=== PATIENT | female | born 1940 | race Caucasian/White ===

== ENCOUNTER 2018-08-08 18:58 | Inpatient (IN) | payer OTHER ==
[2018-08-08] MEDS ORDERED: ACETAMINOPHEN 1000 MG/100 ML VIAL (NON FORMULARY) IVPB ONE (20:08)
--- NOTE | 2018-08-08 20:16 | PDOC ---
History of Present Illness - General Chief Complaint: Injury Stated Complaint: FALL Time Seen by Provider: 08/08/18 19:53 History Source: Patient Exam Limitations: Language Barrier - History of Present Illness Initial Comments: 78 yo F w a hx of HTN, HLD, T2DM comes into the ER with Right sided hip pain after she tripped and fell on her Right hip. She states there were multiple water bottles on the floor of her house and she tripped on the last one. She denies hitting her head, denies any LOC, denies hitting anything other than her R hip. Now she is in significant pain the right hip and cannot walk on it. Usually she is able to ambulate without a walker. She denies any recent fevers, chills, or infections. Denies any chest pain, SOB , or difficulty breathing. Denies any dysuria, frequency, urgency. Denies any headache, LOC, blurry vision. Denies any diarrhea or constipation. PCP: Dr. Carlos Roberto Psh: None Social hx: Denies smoking, drinking or illicit drug usage Allergies: NKA, NKDA Past History - Past Medical History Allergies/Adverse Reactions: Allergies Allergy/AdvReac Type Severity Reaction Status Date / Time No Known Allergies Allergy Verified 08/08/18 19:11 Home Medications: Ambulatory Orders Metformin HCl [Metformin HCl ER] 500 mg PO DAILY 10/31/14 Quinapril HCl [Accupril -] 20 mg PO DAILY 10/31/14 Simvastatin [Zocor -] 40 mg PO HS 10/31/14 COPD: No CHF: No Diabetes: Yes HTN: Yes - Suicide/Smoking/Psychosocial Hx Smoking History: Never smoked Have you smoked in the past 12 months: No Information on smoking cessation initiated: No Hx Alcohol Use: No Drug/Substance Use Hx: No Substance Use Type: None Review of Systems - Review of Systems Comments:: CONSTITUTIONAL: Absent: fever, no chills, no fatigue EYES: Absent: visual changes ENT: Absent: ear pain, no sore throat CARDIOVASCULAR: Absent: chest pain, no palpitations RESPIRATORY: Absent: cough, no SOB GI: Absent: abdominal pain, no nausea, no vomiting, no constipation, no diarrhea GENITOURINARY: Absent: dysuria, no frequency, no hematuria MUSKULOSKELETAL: Present: Arthralgia Absent: back pain, no myalgia SKIN: Absent: rash NEURO: Absent: headache *Physical Exam - Vital Signs Last Vital Signs Temp Pulse Resp BP Pulse Ox 98.7 F 92 H 16 175/83 H 100 08/08/18 19:00 08/08/18 19:00 08/08/18 19:00 08/08/18 19:00 08/08/18 19:00 - Physical Exam Comments: GENERAL: Well-appearing, well-nourished. No apparent distress. HEENT: Normocephalic, atraumatic. PERRL, EOM intact. CARDIOVASCULAR: Normal S1, S2. Regular rate and rhythm. PULMONARY: Clear to auscultation bilaterally. ABDOMEN: Soft, non-distended, non-tender. MUSCULOSKELETAL RIGHT LEG: The right leg appears shorter than the left. 2+ equal pulses. Normal sensation equal to left. Equal strength in R ankle compared to left. Normal range of motion at all other joints. No bony deformities or tenderness. No CVA tenderness. EXTREMITIES: No cyanosis. No clubbing. No edema. No calf tenderness. SKIN: Warm, dry. No rash NEUROLOGICAL: No focal neurological deficits. Moderate Sedation - Procedure Monitoring Vital Signs: Procedure Monitoring Vital Signs Temperature 98.7 F 08/08/18 19:00 Pulse Rate 92 H 08/08/18 19:00 Respiratory Rate 16 08/08/18 19:00 Blood Pressure 175/83 H 08/08/18 19:00 O2 Sat by Pulse Oximetry (%) 100 08/08/18 19:00 ED Treatment Course - LABORATORY CBC & Chemistry Diagram: 08/08/18 20:50 08/08/18 20:50 - RADIOLOGY Radiology Studies Ordered: Category Date Time Status HIP & PELVIS-RIGHT [RAD] Stat Radiology 08/08/18 20:06 Ordered Medical Decision Making - Medical Decision Making 78 yo F w a hx of HTN, HLD, T2DM comes into the ER with Right sided hip pain after she tripped and fell on her Right hip. DD includes but not limited to: Hip fx, hip dislocation, pelvis fracture, uti, acs, electrolyte abnormality, arrhythmia Plan: cbc, cmp, trop, Pt/inr, ptt, type and screen, ua/uc, EKG, pelvis/hip xr, analgesia, re-assess. Xray shows patient has a R sided hip fracture. Will admit patient for further care. Pre-op labs drawn Morphine given for pain control. *DC/Admit/Observation/Transfer Diagnosis at time of Disposition: Hip fracture - Discharge Dispostion Condition at time of disposition: Guarded Decision to Admit order: Yes - Referrals - Patient Instructions - Post Discharge Activity
--- NOTE | 2018-08-08 20:41 | PDOC ---
Attending Attestation - HPI HPI: The patient is an 78 year old female, with a significant PMH of HTN, HLD, and DM , who presents to the emergency department today complaining of right hip pain s /p unwitnessed fall earlier today. Patient notes she tripped on a water bottle and fell onto her right hip. Patient reports that the pain is localized to the affected area, but complains of inability to get up from prone/seated position or walk secondary to pain. Patient denies head contusion, LOC, or change in vision. The patient denies chest pain, shortness of breath, headache and dizziness. Denies fever, chills, nausea, vomit, diarrhea and constipation. Denies dysuria, frequency, urgency and hematuria. Allergies: NKA PCP: Dr. Carlos Roberto 08/08/18 20:55 <Anne-Marie Green - Last Filed: 08/08/18 20:55> - Resident Resident Name: Panfilo Thacker - ED Attending Attestation I have performed the following: I have examined & evaluated the patient, The case was reviewed & discussed with the resident, I agree w/resident's findings & plan, Exceptions are as noted - Physicial Exam PE: 08/08/18 21:45 NAD, AOx3 NCAT, Neck supple Diffuse tenderness of R hip, no swelling, no erythema Decreased ROM at hip 2/2 px Distal pulses intact, SILT RLE held by pt externally rotated, questionable shortening - Medical Decision Making 08/08/18 21:46 Mechanical fall, landed on R hip, no head trauma Concern for Hip fx analgesia, f/u imaging 08/08/18 23:02 Morphine 4mg with good effect Plain film with R hip fx admit <Karson Ordonez - Last Filed: 08/08/18 23:02>
[2018-08-08] MEDS ORDERED: ACETAMINOPHEN INJECTION 100 ML IVPB ONE (20:44)
[2018-08-08 20:59] LABS: BASO % 0.4 % (0-2.0); EOS % 0.8 % (0-4.5); HEMATOCRIT 41.6 % (32.4-45.2); HEMOGLOBIN 14.7 GM/dL (10.7-15.3); LYMPH % 12.4 % (8-40); MCH 30.6 pg (25.7-33.7); MCHC 35.2 g/dl (32.0-36.0); MEAN PLT VOLUME 9.9 fl (7.5-11.1); MONO % 6.5 % (3.8-10.2); NEUT % 79.9 % (42.8-82.8); PLATELET COUNT 202 K/MM3 (134-434); RBC 4.79 M/mm3 (3.60-5.2); RDW 13.7 % (11.6-15.6); WHITE BLOOD COUNT 10.1 K/mm3 (4.0-10.0)
[2018-08-08 21:11] LABS: URINE APPEARANCE CLEAR; URINE BILIRUBIN NEGATIVE (<2.0 mg/dL); URINE COLOR LTYELLOW; URINE GLUCOSE (UA) NEGATIVE (NEGATIVE); URINE KETONE NEGATIVE (NEGATIVE); URINE LEUK ESTERASE 2+ (NEGATIVE); URINE NITRITE NEGATIVE (NEGATIVE); URINE PROTEIN 1+ (NEGATIVE); URINE UROBILINOGEN NEGATIVE mg/dL (0.2-1.0)
[2018-08-08 21:24] LABS: EPI CELLS RARE /HPF (FEW); URINE MUCUS RARE
[2018-08-08 21:38] LABS: ALK PHOS 81 U/L (45-117); ANION GAP 10 MMOL/L (8-16); BILIRUBIN,TOTAL 0.3 mg/dL (0.2-1); BLOOD UREA NITROGEN 14 mg/dL (7-18); CALCIUM 8.8 mg/dL (8.5-10.1); CHLORIDE 106 mmol/L (98-107); CO2 24 mmol/L (21-32); CREATININE 0.6 mg/dL (0.55-1.3); GLUCOSE,RANDOM 181 mg/dL (74-106); POTASSIUM 4.1 mmol/L (3.5-5.1); SGOT/AST 15 U/L (15-37); SGPT/ALT 23 U/L (13-61); SODIUM 140 mmol/L (136-145); TOT PROT 7.2 g/dl (6.4-8.2)
[2018-08-08 21:44] LABS: INR 1.02 (0.83-1.09)
[2018-08-08 21:47] LABS: ACTIVATED PTT 27.8 SECONDS (25.2-36.5)
[2018-08-08] MEDS ORDERED: morphine CARPU-JECT 4 MG/1 ML DISP.SYRIN IVPUSH ONE (22:07)
[2018-08-08] MEDS ORDERED: MORPHINE SULFATE 2 MG/ML VIAL ONE (22:30)
--- NOTE | 2018-08-08 22:50 | PN ---
Teaching Attending Note Name of Resident: Canelo Ryan ATTENDING PHYSICIAN STATEMENT I saw and evaluated the patient. I reviewed the resident's note and discussed the case with the resident. I agree with the resident's findings and plan as documented. SUBJECTIVE: Patient is an 78 year old woman with a history of HTN, HLD and NIDDM who presents with Right sided hip pain after she tripped and fell on her Right hip. She states there were multiple water bottles on the floor of her house and she tripped on the last one. She denies hitting her head, denies any LOC, denies hitting anything other than her R hip. Now she is in significant pain the right hip and cannot walk on it. Usually she is able to ambulate without a walker. She denies any recent fevers, chills, chest pain, SOB, dysuria, headache, blurry vision or diarrhea. OBJECTIVE: Alert Vital Signs Period Temp Pulse Resp BP Sys/Mccoy Pulse Ox Last 24 Hr 98.7 F 92 16 175/83 100 HEENT: No Jaundice, eye redness or discharge, PERRLA, EOMI. Normocephalic, atraumatic. External ears are normal and hearing is grossly intact. No nasal discharge. Neck: Supple, nontender. No palpable adenopathy or thyromegaly. No JVD Chest: Good effort. Clear to auscultation and percussion. Heart: Regular. No S3, rub or murmur Abdomen: Not distended, soft, nontender and no HSM. No rebound or guarding. Normoactive bowel sounds. Ext: Peripheral pulses intact. No leg edema. Tender right hip with reduced range of motion. [place] right leg. Skin: Warm and dry. No petechiae, rash or ecchymosis. Neuro: Alert. Oriented x3. CN 2-12 grossly intact. Sensation grossly intact in all four extremities and DTR are symmetric. Home Medications Medication Instructions Recorded Metformin HCl [Metformin HCl ER] 500 mg PO DAILY 10/31/14 Quinapril HCl [Accupril -] 20 mg PO DAILY 10/31/14 Simvastatin [Zocor -] 40 mg PO HS 10/31/14 Abnormal Lab Results 08/08/18 08/08/18 08/08/18 20:39 20:50 20:50 WBC 10.1 H Random Glucose 181 H Urine Protein 1+ H Ur Leukocyte Esterase 2+ H ASSESSMENT AND PLAN: 1. Right Hip Fracture - Reportedly a mechanical fall, but the role of associated UTI is unclear since she does not have any urinary symptoms. Will treat UTI with Rocephin, keep her NPO, consult Ortho, control pain with IV morphine, and treat uncontrolled hypertension with amlodipine and lisinopril. 2. DM - For now, we will hold the home diabetes drugs and implement sliding scale insulin regimen. Provide comprehensive diabetes care with patient teaching and counseling about the importance of euglycemia, eye care and foot care. 3. DVT prophylaxis - Lovenox 40 mg SQ q 24 hours. 4. Advance directives - Full code
[2018-08-08] MEDS ORDERED: MORPHINE SULFATE 2 MG/ML VIAL IVPUSH PRN (23:00)
[2018-08-08] MEDS ORDERED: amLODIPine BESYLATE 5 MG TABLET (FP) PO ONE (23:04)
[2018-08-08] MEDS ORDERED: LISINOPRIL 20 MG TABLET (FP) PO SCH (23:15)
[2018-08-08] MEDS ORDERED: LACTATED RINGERS SOLUTION 1,000 ML IV SCH (23:15)
--- NOTE | 2018-08-08 23:15 | HP ---
CHIEF COMPLAINT: hip pain PCP: Carlos Roberto MD HISTORY OF PRESENT ILLNESS: Patient is an 78 y/o F w/ PMHx T2DM, HTN, HLD, was in [facility] until a mechanical fall today involving a water bottle. Fell onto right side and developed right hip pain. Denies head trauma, denies LOC, denies CP, denies abd pain, denies SOB , denies weakness or change in sensation. Denies dysuria, however, UA is positive and UCx pending. Hip XR demonstrates right femoral neck fracture. Received Ofirmev and morphine in ED, made more comfortable. Hypertensive on admission to 175/83, repeat BP after administration of morphine was unchanged. ER course was notable for: (1) R Hip Fx per XR (2) 2+ LE, 23 WBC on UA (3) BP 175/83 Recent Travel: PAST MEDICAL HISTORY: As per [facility] PAST SURGICAL HISTORY: None Social History: Smoking: none Alcohol: none Drugs: none Family History: Allergies No Known Allergies Allergy (Verified 08/08/18 19:11) HOME MEDICATIONS: Home Medications Medication Instructions Recorded Metformin HCl [Metformin HCl ER] 500 mg PO DAILY 10/31/14 Quinapril HCl [Accupril -] 20 mg PO DAILY 10/31/14 Simvastatin [Zocor -] 40 mg PO HS 10/31/14 REVIEW OF SYSTEMS As per [facility] PHYSICAL EXAMINATION Vital Signs - 24 hr 08/08/18 19:00 Temperature 98.7 F Pulse Rate 92 H Respiratory 16 Rate Blood Pressure 175/83 H O2 Sat by Pulse 100 Oximetry (%) GENERAL: A&Ox3, NAD HEAD: NC/AT EYES: PERRLA, EOMI EARS, NOSE, THROAT: Ears normal, nares patent, oropharynx clear without exudates. Moist mucous membranes. NECK: Normal range of motion, supple without lymphadenopathy, JVD, or masses. LUNGS: Breath sounds equal, clear to auscultation bilaterally. No wheezes, and no crackles. No accessory muscle use. HEART: Regular rate and rhythm, normal S1 and S2 without murmur, rub or gallop. ABDOMEN: Soft, nontender, not distended, normoactive bowel sounds, no guarding, no rebound, no masses. No hepatomegaly or splenomegaly. MUSCULOSKELETAL: Right LE shortened and held in abduction, TTP along R lateral femur UPPER EXTREMITIES: 2+ pulses, warm, well-perfused. No cyanosis. No clubbing. No peripheral edema. LOWER EXTREMITIES: 2+ pulses, warm, well-perfused. No calf tenderness. No peripheral edema. NEUROLOGICAL: Cranial nerves II-XII intact. Normal speech. Proximal LE strength not assessed, distal LE strength intact. Sensorium intact. Gait not assessed. PSYCHIATRIC: Cooperative. Good eye contact. Appropriate mood and affect. SKIN: Warm, dry, normal turgor, no rashes or lesions noted, normal capillary refill. Laboratory Results - last 24 hr 08/08/18 08/08/18 08/08/18 20:39 20:50 20:50 WBC 10.1 H RBC 4.79 Hgb 14.7 Hct 41.6 MCV 87.0 MCH 30.6 MCHC 35.2 RDW 13.7 Plt Count 202 D MPV 9.9 Absolute Neuts (auto) 8.0 Neutrophils % 79.9 D Lymphocytes % 12.4 D Monocytes % 6.5 Eosinophils % 0.8 Basophils % 0.4 Nucleated RBC % 0 PT with INR INR PTT (Actin FS) Sodium 140 Potassium 4.1 Chloride 106 Carbon Dioxide 24 Anion Gap 10 BUN 14 Creatinine 0.6 Creat Clearance w eGFR > 60 Random Glucose 181 H Calcium 8.8 Total Bilirubin 0.3 AST 15 ALT 23 Alkaline Phosphatase 81 Troponin I 0.03 Total Protein 7.2 Albumin 4.0 Urine Color Ltyellow Urine Appearance Clear Urine pH 7.0 Ur Specific [place] 1.012 Urine Protein 1+ H Urine Glucose (UA) Negative Urine Ketones Negative Urine Blood Negative Urine Nitrite Negative Urine Bilirubin Negative Urine Urobilinogen Negative Ur Leukocyte Esterase 2+ H Urine WBC (Auto) 23 Urine RBC (Auto) 1 Ur Epithelial Cells Rare Urine Mucus Rare 08/08/18 21:20 WBC RBC Hgb Hct MCV MCH MCHC RDW Plt Count MPV Absolute Neuts (auto) Neutrophils % Lymphocytes % Monocytes % Eosinophils % Basophils % Nucleated RBC % PT with INR 12.00 INR 1.02 PTT (Actin FS) 27.8 Sodium Potassium Chloride Carbon Dioxide Anion Gap BUN Creatinine Creat Clearance w eGFR Random Glucose Calcium Total Bilirubin AST ALT Alkaline Phosphatase Troponin I Total Protein Albumin Urine Color Urine Appearance Urine pH Ur Specific [place] Urine Protein Urine Glucose (UA) Urine Ketones Urine Blood Urine Nitrite Urine Bilirubin Urine Urobilinogen Ur Leukocyte Esterase Urine WBC (Auto) Urine RBC (Auto) Ur Epithelial Cells Urine Mucus ASSESSMENT/PLAN: 78 y/o F w/ PMHx T2DM, HTN, HLD p/w R hip Fx 2/2 mechanical fall, possible contribution of UTI to fall. #hip Fx -NPO -morphine PRN -LR @ 42 -ortho consulted #UTI -ceftriaxone empirically -UCx pending #T2DM -hold metformin -BGM ACHS -SSI #HLD -restart statin #HTN -one dose amlodipine 5 -lisinopril 20 BID #FEN -LR @ 42 -monitor lytes -NPO except meds #PPx -DVT: SCDs, no pharmacologic AC pending surgical eval -GI: not indicated #code -full #dispo -admit to med/surg Visit type - Emergency Visit Emergency Visit: Yes Care time: The patient presented to the Emergency Department on the above date and was hospitalized for further evaluation of their emergent condition. - New Patient This patient is new to me today: Yes Date on this admission: 08/08/18 - Critical Care Critical Care patient: No
[2018-08-08] MEDS ORDERED: CEFTRIAXONE 1 GM/50 ML BAG ONE (23:22)
[2018-08-08] MEDS ORDERED: LISINOPRIL 20 MG TABLET (FP) ONE (23:22)
[2018-08-08] MEDS ORDERED: amLODIPine BESYLATE 5 MG TABLET (FP) ONE (23:22)
[2018-08-08] MEDS: CEFTRIAXONE 1 GM in DEXTROSE 5%-WATER - 50 ML IVPB SCH (23:46)
[2018-08-09 03:37] VITALS: BMI 30.2
[2018-08-09] MEDS: INSULIN SLIDING SCALE (NOVOLOG) 1 VIAL SQ SCH ×4 (06:41→21:41)
[2018-08-09 07:34] LABS: ANION GAP 10 MMOL/L (8-16); BLOOD UREA NITROGEN 13 mg/dL (7-18); CALCIUM 8.2 mg/dL (8.5-10.1); CHLORIDE 104 mmol/L (98-107); CO2 25 mmol/L (21-32); CREATININE 0.5 mg/dL (0.55-1.3); GLUCOSE,RANDOM 185 mg/dL (74-106); PHOSPHOROUS 3.3 mg/dL (2.5-4.9); SODIUM 140 mmol/L (136-145)
[2018-08-09 07:47] LABS: BASO % 0.4 % (0-2.0); EOS % 0.2 % (0-4.5); HEMATOCRIT 40.3 % (32.4-45.2); HEMOGLOBIN 13.1 GM/dL (10.7-15.3); LYMPH % 11.1 % (8-40); MCH 28.6 pg (25.7-33.7); MCHC 32.6 g/dl (32.0-36.0); MEAN CELL VOLUME 87.7 fl (80-96); MEAN PLT VOLUME 10.1 fl (7.5-11.1); MONO % 6.2 % (3.8-10.2); NEUT % 82.1 % (42.8-82.8); PLATELET COUNT 180 K/MM3 (134-434); RBC 4.59 M/mm3 (3.60-5.2); RDW 13.7 % (11.6-15.6); WHITE BLOOD COUNT 8.8 K/mm3 (4.0-10.0)
--- NOTE | 2018-08-09 08:44 | PN ---
Teaching Attending Note Name of Resident: Mike Ochoa ATTENDING PHYSICIAN STATEMENT I saw and evaluated the patient. I reviewed the resident's note and discussed the case with the resident. I agree with the resident's findings and plan as documented. SUBJECTIVE: Patient is c/o having right hip pain s/p fall, going for surgery today. No fever or chills, no shorteness of breath. OBJECTIVE: Vital Signs Temperature 97.7 F 08/09/18 05:54 Pulse Rate 68 08/09/18 05:54 Respiratory Rate 18 08/09/18 05:54 Blood Pressure 156/70 08/09/18 05:54 O2 Sat by Pulse Oximetry (%) 99 08/09/18 02:55 GENERAL: A&Ox3, NAD HEAD: NC/AT, EYES: PERRLA, EOMI EARS, NOSE, THROAT: Ears normal, oropharynx clear without exudates. Moist mucous membranes. NECK: Normal range of motion, supple without lymphadenopathy, JVD, or masses. LUNGS: Breath sounds equal, clear to auscultation bilaterally. No wheezes, and no crackles. No accessory muscle use. HEART: Regular rate and rhythm, normal S1 and S2 without murmur, rub or gallop. ABDOMEN: Soft, nontender, not distended, normoactive bowel sounds, no guarding, no rebound, no masses. No hepatomegaly or splenomegaly. EXTREMITIES: 2+ pulses, warm, well-perfused. No cyanosis. No clubbing. No peripheral edema. right hip fx NEUROLOGICAL: Cranial nerves II-XII intact. Normal speech. Gait not assessed. PSYCHIATRIC: Cooperative. Good eye contact. Appropriate mood and affect. SKIN: Warm, dry, normal turgor, no rashes or lesions noted, normal capillary refill. CBCD WBC 8.8 K/mm3 (4.0-10.0) 08/09/18 06:00 RBC 4.59 M/mm3 (3.60-5.2) 08/09/18 06:00 Hgb 13.1 GM/dL (10.7-15.3) 08/09/18 06:00 Hct 40.3 % (32.4-45.2) 08/09/18 06:00 MCV 87.7 fl (80-96) 08/09/18 06:00 MCHC 32.6 g/dl (32.0-36.0) 08/09/18 06:00 RDW 13.7 % (11.6-15.6) 08/09/18 06:00 Plt Count 180 K/MM3 (134-434) 08/09/18 06:00 MPV 10.1 fl (7.5-11.1) 08/09/18 06:00 CMP Sodium 140 mmol/L (136-145) 08/09/18 06:00 Potassium 4.0 mmol/L (3.5-5.1) 08/09/18 06:00 Chloride 104 mmol/L (98-107) 08/09/18 06:00 Carbon Dioxide 25 mmol/L (21-32) 08/09/18 06:00 Anion Gap 10 MMOL/L (8-16) 08/09/18 06:00 BUN 13 mg/dL (7-18) 08/09/18 06:00 Creatinine 0.5 mg/dL (0.55-1.3) L 08/09/18 06:00 Creat Clearance w eGFR > 60 (>60) 08/09/18 06:00 Random Glucose 185 mg/dL (74-106) H 08/09/18 06:00 Calcium 8.2 mg/dL (8.5-10.1) L 08/09/18 06:00 Total Bilirubin 0.3 mg/dL (0.2-1) 08/08/18 20:50 AST 15 U/L (15-37) 08/08/18 20:50 ALT 23 U/L (13-61) 08/08/18 20:50 Alkaline Phosphatase 81 U/L (45-117) 08/08/18 20:50 Total Protein 7.2 g/dl (6.4-8.2) 08/08/18 20:50 Albumin 4.0 g/dl (3.4-5.0) 08/08/18 20:50 CARDIAC ENZYMES Troponin I 0.03 ng/ml (0.00-0.05) 08/08/18 20:50 Current Medications Generic Name Dose Route Start Last Admin Trade Name Freq PRN Reason Stop Dose Admin Atorvastatin Calcium 20 mg 08/09/18 22:00 Lipitor - PO HS TERRENCE Lactated Ringer's 1,000 mls @ 42 mls/hr 08/08/18 23:15 08/08/18 23:46 Lactated Ringers Solution IV 42 mls/hr ASDIR TERRENCE Administration Ceftriaxone Sodium 1 gm/ 50 mls @ 100 mls/hr 08/08/18 23:15 08/08/18 23:46 Dextrose IVPB 100 mls/hr DAILY TERRENCE Administration Protocol Insulin Aspart 1 vial 08/09/18 07:00 08/09/18 06:41 Novolog Vial Sliding Scale - SQ 2 units ACHS TERRENCE Administration Protocol Lisinopril 20 mg 08/09/18 10:00 Prinivil PO DAILY [facility] Morphine Sulfate 2 mg 08/08/18 23:00 Morphine Sulfate IVPUSH Q4H PRN PAIN LEVEL 6-10 Home Medications Medication Instructions Recorded Metformin HCl [Metformin HCl ER] 500 mg PO DAILY 10/31/14 Quinapril HCl [Accupril -] 20 mg PO DAILY 10/31/14 Simvastatin [Zocor -] 40 mg PO HS 10/31/14 Amlodipine Besylate [Norvasc -] 5 mg PO DAILY 08/09/18 Lisinopril 20 mg PO 08/09/18 Urine Test Results Urine Color Ltyellow 08/08/18 20:39 Urine Appearance Clear 08/08/18 20:39 Urine pH 7.0 (5.0-8.0) 08/08/18 20:39 Ur Specific [place] 1.012 (1.010-1.035) 08/08/18 20:39 Urine Protein 1+ (NEGATIVE) H 08/08/18 20:39 Urine Glucose (UA) Negative (NEGATIVE) 08/08/18 20:39 Urine Ketones Negative (NEGATIVE) 08/08/18 20:39 Urine Blood Negative (NEGATIVE) 08/08/18 20:39 Urine Nitrite Negative (NEGATIVE) 08/08/18 20:39 Urine Bilirubin Negative (<2.0 mg/dL) 08/08/18 20:39 Ur Leukocyte Esterase 2+ (NEGATIVE) H 08/08/18 20:39 Ur Epithelial Cells Rare /HPF (FEW) 08/08/18 20:39 Urine Mucus Rare 08/08/18 20:39 ASSESSMENT AND PLAN: PAtient is an 78 y/o F w/ PMHx T2DM, HTN, HLD s/p fall with R hip Fx due to mechanical fall. #Acute Right Hip Fx: NPO, morphine PRN, going for sx this afternoon #UTI: x 1 dose of ceftriaxone empirically given in ED. UCx is pending. #T2DM: hold metformin, BGM ACHS, SSI #HLD: continue with Lipitor , hold zocor due to DDI with Amlidipine and zocor. #HTN: one dose amlodipine 5, lisinopril 20 BID DVT px: Lovenox post surgery
[2018-08-09] MEDS ORDERED: DEXTROSE 5%-WATER - 50 ML IVPB ONE (09:14)
[2018-08-09] MEDS ORDERED: cefTRIAXone SODIUM 1 GM VIAL ONE (09:14)
[2018-08-09] MEDS: CEFTRIAXONE 1 GM in DEXTROSE 5%-WATER - 50 ML IVPB SCH (09:56)
[2018-08-09] MEDS ORDERED: LISINOPRIL 20 MG TABLET (FP) PO SCH (10:00)
--- NOTE | 2018-08-09 10:27 | EKG ---
Test Reason : Blood Pressure : / mmHG Vent. Rate : 072 BPM Atrial Rate : 072 BPM P-R Int : 148 ms QRS Dur : 136 ms QT Int : 434 ms P-R-T Axes : 028 -34 069 degrees QTc Int : 475 ms NORMAL SINUS RHYTHM LEFT AXIS DEVIATION RIGHT BUNDLE BRANCH BLOCK LEFT VENTRICULAR HYPERTROPHY WITH REPOLARIZATION ABNORMALITY ABNORMAL ECG WHEN COMPARED WITH ECG OF 08-AUG-2018 20:57, MINIMAL CRITERIA FOR SEPTAL INFARCT ARE NO LONGER PRESENT Confirmed by RAMON HENLEY, ANT ([id number]) on 08/09/2018 10:26:33 AM Referred By: ENRRIQUE PUENTES Confirmed By:ANT NAVARRO MD
--- NOTE | 2018-08-09 10:28 | EKG ---
Test Reason : Blood Pressure : / mmHG Vent. Rate : 081 BPM Atrial Rate : 081 BPM P-R Int : 148 ms QRS Dur : 134 ms QT Int : 420 ms P-R-T Axes : 045 -36 076 degrees QTc Int : 487 ms NORMAL SINUS RHYTHM POSSIBLE LEFT ATRIAL ENLARGEMENT LEFT AXIS DEVIATION RIGHT BUNDLE BRANCH BLOCK LEFT VENTRICULAR HYPERTROPHY WITH REPOLARIZATION ABNORMALITY CANNOT RULE OUT SEPTAL INFARCT (CITED ON OR BEFORE 31-OCT-2014) ABNORMAL ECG WHEN COMPARED WITH ECG OF 31-OCT-2014 22:21, QUESTIONABLE CHANGE IN INITIAL FORCES OF SEPTAL LEADS T WAVE INVERSION LESS EVIDENT IN LATERAL LEADS Confirmed by ANT NAVARRO MD ([id number]) on 08/09/2018 10:28:22 AM Referred By: Confirmed By:ANT NAVARRO MD
[2018-08-09] MEDS ORDERED: ONDANSETRON 4 MG/2 ML VIAL IVPUSH PRN ×2 (12:29→15:18)
[2018-08-09] MEDS ORDERED: BUPIVACAINE HCL/PF 0.5% (5MG/ML) 10 ML VIAL ONE (12:45)
[2018-08-09] MEDS ORDERED: MIDAZOLAM HCL 2 MG/2 ML SINGLE DOSE VIAL ONE ×2 (12:47)
--- NOTE | 2018-08-09 13:15 | PN ---
Physical Exam: SUBJECTIVE: Patient seen and examined. Pt. denies any issues or complaints except for right hip pain. Pt. denies dysuria, polyuria or hematuria. Pt. denies fevers or chills. Pt. denies any prodromal symptoms before fall, hitting head or LOC. Pt. NPO for gamma nail procedure today. OBJECTIVE: Vital Signs Period Temp Pulse Resp BP Sys/Mccoy Pulse Ox Last 24 Hr 97.7 F-98.7 F 67-92 16-19 148-175/70-85 97-100 GENERAL: The patient is awake, alert, and fully oriented, in mild distress. HEAD: Normal with no signs of trauma. EYES: PERRL, extraocular movements intact, sclera anicteric, conjunctiva clear. No ptosis. ENT: Ears normal, nares patent, oropharynx clear without exudates, moist mucous membranes. NECK: Trachea midline, full range of motion, supple. LUNGS: Breath sounds equal, clear to auscultation bilaterally, no wheezes, mild fluid dependant crackles, no accessory muscle use. HEART: Regular rate and rhythm, S1, S2 without murmur, prominent clavicular heads ABDOMEN: Soft, nontender, nondistended, normoactive bowel sounds, dull to percussion, no guarding, no rebound EXTREMITIES: 2+ dorsal pedal pulses, warm, no calf tenderness, well-perfused, no edema, RIGGINS spontaneously; right hip non-tender to palpation, externally rotated, no erythema or ecchymosis at site. NEUROLOGICAL: Normal speech, gait not observed. PSYCH: Normal mood, normal affect. SKIN: Warm, dry, normal turgor, no rashes or lesions noted Laboratory Results - last 24 hr 08/08/18 08/08/18 08/08/18 08:59 20:39 20:50 WBC 10.1 H RBC 4.79 Hgb 14.7 Hct 41.6 MCV 87.0 MCH 30.6 MCHC 35.2 RDW 13.7 Plt Count 202 D MPV 9.9 Absolute Neuts (auto) 8.0 Neutrophils % 79.9 D Lymphocytes % 12.4 D Monocytes % 6.5 Eosinophils % 0.8 Basophils % 0.4 Nucleated RBC % 0 PT with INR INR PTT (Actin FS) Sodium Potassium Chloride Carbon Dioxide Anion Gap BUN Creatinine Creat Clearance w eGFR POC Glucometer Random Glucose Calcium Phosphorus Magnesium Total Bilirubin AST ALT Alkaline Phosphatase Troponin I Total Protein Albumin Urine Color Ltyellow Urine Appearance Clear Urine pH 7.0 Ur Specific [place] 1.012 Urine Protein 1+ H Urine Glucose (UA) Negative Urine Ketones Negative Urine Blood Negative Urine Nitrite Negative Urine Bilirubin Negative Urine Urobilinogen Negative Ur Leukocyte Esterase 2+ H Urine WBC (Auto) 23 Urine RBC (Auto) 1 Ur Epithelial Cells Rare Urine Mucus Rare Blood Type AB POSITIVE Antibody Screen 08/08/18 08/08/18 08/08/18 20:50 21:20 21:20 WBC RBC Hgb Hct MCV MCH MCHC RDW Plt Count MPV Absolute Neuts (auto) Neutrophils % Lymphocytes % Monocytes % Eosinophils % Basophils % Nucleated RBC % PT with INR 12.00 INR 1.02 PTT (Actin FS) 27.8 Sodium 140 Potassium 4.1 Chloride 106 Carbon Dioxide 24 Anion Gap 10 BUN 14 Creatinine 0.6 Creat Clearance w eGFR > 60 POC Glucometer Random Glucose 181 H Calcium 8.8 Phosphorus Magnesium Total Bilirubin 0.3 AST 15 ALT 23 Alkaline Phosphatase 81 Troponin I 0.03 Total Protein 7.2 Albumin 4.0 Urine Color Urine Appearance Urine pH Ur Specific [place] Urine Protein Urine Glucose (UA) Urine Ketones Urine Blood Urine Nitrite Urine Bilirubin Urine Urobilinogen Ur Leukocyte Esterase Urine WBC (Auto) Urine RBC (Auto) Ur Epithelial Cells Urine Mucus Blood Type AB POSITIVE Antibody Screen Negative 08/09/18 08/09/18 08/09/18 06:00 06:00 06:40 WBC 8.8 RBC 4.59 Hgb 13.1 Hct 40.3 MCV 87.7 MCH 28.6 MCHC 32.6 RDW 13.7 Plt Count 180 MPV 10.1 Absolute Neuts (auto) 7.2 Neutrophils % 82.1 Lymphocytes % 11.1 Monocytes % 6.2 Eosinophils % 0.2 Basophils % 0.4 Nucleated RBC % 0 PT with INR INR PTT (Actin FS) Sodium 140 Potassium 4.0 Chloride 104 Carbon Dioxide 25 Anion Gap 10 BUN 13 Creatinine 0.5 L Creat Clearance w eGFR > 60 POC Glucometer 195 Random Glucose 185 H Calcium 8.2 L Phosphorus 3.3 Magnesium 2.0 Total Bilirubin AST ALT Alkaline Phosphatase Troponin I Total Protein Albumin Urine Color Urine Appearance Urine pH Ur Specific [place] Urine Protein Urine Glucose (UA) Urine Ketones Urine Blood Urine Nitrite Urine Bilirubin Urine Urobilinogen Ur Leukocyte Esterase Urine WBC (Auto) Urine RBC (Auto) Ur Epithelial Cells Urine Mucus Blood Type Antibody Screen 08/09/18 11:16 WBC RBC Hgb Hct MCV MCH MCHC RDW Plt Count MPV Absolute Neuts (auto) Neutrophils % Lymphocytes % Monocytes % Eosinophils % Basophils % Nucleated RBC % PT with INR INR PTT (Actin FS) Sodium Potassium Chloride Carbon Dioxide Anion Gap BUN Creatinine Creat Clearance w eGFR POC Glucometer 138 Random Glucose Calcium Phosphorus Magnesium Total Bilirubin AST ALT Alkaline Phosphatase Troponin I Total Protein Albumin Urine Color Urine Appearance Urine pH Ur Specific [place] Urine Protein Urine Glucose (UA) Urine Ketones Urine Blood Urine Nitrite Urine Bilirubin Urine Urobilinogen Ur Leukocyte Esterase Urine WBC (Auto) Urine RBC (Auto) Ur Epithelial Cells Urine Mucus Blood Type Antibody Screen Active Medications Home Medications Medication Instructions Recorded Metformin HCl [Metformin HCl ER] 500 mg PO BID 10/31/14 Alprazolam [Xanax] 0.25 mg PO DAILY 08/09/18 Current Medications Atorvastatin Calcium (Lipitor -) 20 mg PO HS COUNT INCLUDES [facility] Fentanyl (Sublimaze Injection -) 50 mcg IVPUSH [id number] PRN PRN Reason: PAIN-PACU ORDER X 4 DOSES ONLY Lactated Ringer's (Lactated Ringers Solution) 1,000 mls @ 42 mls/hr IV ASDIR COUNT INCLUDES THE [facility] Last Admin: 08/08/18 23:46 Dose: 42 mls/hr Ceftriaxone Sodium 1 gm/ (Dextrose) 50 mls @ 100 mls/hr IVPB DAILY COUNT INCLUDES [facility]; Protocol Last Admin: 08/09/18 09:56 Dose: 100 mls/hr Insulin Aspart (Novolog Vial Sliding Scale -) 1 vial SQ ACHS COUNT INCLUDES THE [facility]; Protocol Last Admin: 08/09/18 11:18 Dose: Not Given Lisinopril (Prinivil) 20 mg PO DAILY COUNT [facility]CLUDES [facility] Last Admin: 08/09/18 10:01 Dose: 20 mg Morphine Sulfate (Morphine Sulfate) 2 mg IVPUSH Q4H PRN PRN Reason: PAIN LEVEL 6-10 Ondansetron HCl (Zofran Injection) 4 mg IVPUSH Q6H PRN PRN Reason: NAUSEA AND/OR VOMITING ASSESSMENT/PLAN: Pt. is an 78 y.o. F w/ PMHx NIDDM, HTN, HLD presents to the ED with Right Hip fracture 2/2 mechanical fall, found to have asymptomatic UTI. #Right Hip Fracture 2/2 mechanical fall -NPO -morphine PRN -LR @ 42 -Orthopedic Surgery consult (Dr. Ross) appreciated -Pt. is going for gamma nail surgery #UTI -Asymptomatic -Given Ceftriaxone empirically in ED -UCx pending- however Pt. asymptomatic at this time, no indication to continue treatment. -History of diabetes may have component in lack of symptoms. #NIDDM -Glucose uncontrolled-185 -hold metformin -BGM ACHS -SSI #HLD -c/w Lipitor 10mg #HTN -c/w Lisinopril 20mg- will restart BID if BP starts to get higher -Per medication reconciliation, Pt. has not picked up ACEI in months #F/E/N -LR @ 42 -monitor electrolytes and replete as needed -NPO except meds #PPx -DVT: SCDs- will resume Hep SQ 5k -GI: not indicated Visit type - Emergency Visit Emergency Visit: Yes ED Registration Date: 08/08/18 Care time: The patient presented to the Emergency Department on the above date and was hospitalized for further evaluation of their emergent condition. - New Patient This patient is new to me today: Yes Date on this admission: 08/09/18 - Critical Care Critical Care patient: No - Discharge Referral Referred to [facility] Med P.C.: No
[2018-08-09] MEDS ORDERED: PROPOFOL 20 ML ONE (13:49)
--- NOTE | 2018-08-09 14:34 | OP ---
Operative Note - Note: Operative Date: 08/09/18 Pre-Operative Diagnosis: Left IT hip fracture Operation: left hip IM nail Implants: jason gamma 3 system, short nail, 125 deg, 95mm proximal lag screw, 35mm distal locking screw Post-Operative Diagnosis: Same as Pre-op Surgeon: Howard Ross Staff Field Engineer: Tomas Desir Anesthesiologist/REAL ESTATE VALUER: Eduardo Khan Anesthesia: Spinal Operative Report Dictated: Yes
--- NOTE | 2018-08-09 15:04 | OP ---
DATE OF OPERATION: 08/09/2018 PREOPERATIVE DIAGNOSIS: Right basicervical hip fracture. POSTOPERATIVE DIAGNOSIS: Right basicervical hip fracture. PROCEDURE: Right hip intramedullary nail. SURGEON: Howard Ross MD GEM SETTER: IRON [place], whose skillful assistance was necessary for the safe and timely performance of this procedure. Mr. Desir was able to help provide limb positioning, retraction, assist in fracture reduction, as well as the insertion of orthopedic fixation hardware. ANESTHESIA: Spinal. POSTOPERATIVE CONDITION: Stable. COMPLICATIONS: None. IMPLANTS: [place] Gamma3 system with short, 130 mm x 10 mm nail with 125-degree proximal locking angle. A 95 x 10 mm proximal lag screw and 35 x 5 distal locking screw were used. INDICATIONS: This is a pleasant 78-year-old female who suffered a fall. She was found to have an intertrochanteric left basicervical hip fracture. Given this finding, operative care was indicated. We discussed the option of nonoperative care, prolonged bedrest, and loss of ambulatory ability as well as potential many medical complications. We reviewed operative care in detail and risks including bleeding, infection, neurovascular injury, need for further surgery, postoperative pain and stiffness, nonunion, malunion, hardware failure, or cutout. We discussed medical risks such as heart attack, stroke, DVT, PE, and . I discussed use of perioperative antibiotic and DVT prophylaxis. I addressed all the patient's and her daughters' questions and concerns. They voiced understanding and elected to proceed. DESCRIPTION OF PROCEDURE: The patient was brought to the operating room where spinal anesthetic was administered. The patient was placed on the fracture table, careful to pad all the bony prominences. The right lower extremity was placed into a position of traction, adduction, and internal rotation. A preoperative fluoroscopy view demonstrated satisfactory reduction. The patient was then prepped and draped in usual sterile fashion. A preoperative dose of antibiotics was given, and the usual timeout procedure was performed. The right hip was marked out with the bony landmarks. An incision was planned out proximal to the greater trochanter. This was carried down to the subcutaneous tissue. A guidewire was then inserted onto the tip of the greater trochanter and then malleted into the femoral canal. Guidewire placement was verified fluoroscopically in 2 planes. Guidewire was then overreamed down to the level of the lesser trochanter. The reamer and guidewire were removed. The short nail was now inserted into the femoral canal. Nail placement was confirmed fluoroscopically. Small incision was now made laterally, and a trocar was inserted to the level of the lateral femoral cortex. A guidewire was now inserted down the center of the femoral neck into the center of the femoral head. Guidewire placement was confirmed fluoroscopically in 2 planes. The guidewire was measured, and a 95-mm screw was chosen. This was then overreamed. The screw was then inserted, and screw placement was verified fluoroscopically in 2 planes. The set screw was now advanced all the down, then backed off a quarter turn to allow for compression. The trocar was then removed. The second trocar was now inserted in similar fashion. Distal screw was drilled and measured, and a 35-mm screw was chosen. The screw was then inserted. At this point, the entire construct was examined fluoroscopically. Both fracture reduction and hardware placement were satisfactory. The wounds were copiously irrigated. The subcutaneous tissue was approximated using 2-0 Vicryl. The skin was closed using 3-0 nylon. Sterile dressings were placed. The patient was transferred to recovery room in stable condition. Cody [id number]
[2018-08-09] MEDS ORDERED: LACTATED RINGERS SOLUTION 1,000 ML IV SCH (15:18)
[2018-08-09] MEDS: MORPHINE SULFATE 2 MG/ML VIAL IVPUSH PRN ×2 (17:26→21:40)
[2018-08-09] MEDS ORDERED: MELATONIN 5 MG TABLETS PO ONE (18:00)
[2018-08-09] MEDS ORDERED: hydrALAZINE HCL 10 MG TABLET PO ONE (18:15)
[2018-08-09] MEDS ORDERED: INSULIN (NOVOLOG) ASPART 100 UNITS/ML 10ML VIAL ONE (21:39)
[2018-08-09] MEDS: CALCIUM 500MG/VIT-D 200 UNITS COMBO TABLET (FP) PO SCH (21:40)
[2018-08-09] MEDS: DOCUSATE SODIUM 100 MG CAPSULE (FP) PO SCH (21:40)
[2018-08-09] MEDS: ATORVASTATIN CA 20 MG TABLET (FP) PO SCH (21:41)
[2018-08-09] MEDS ORDERED: ATORVASTATIN CA 20 MG TABLET (FP) PO SCH (22:00)
[2018-08-10] MEDS: MORPHINE SULFATE 2 MG/ML VIAL IVPUSH PRN ×2 (01:48→05:52)
[2018-08-10] MEDS: DOCUSATE SODIUM 100 MG CAPSULE (FP) PO SCH ×3 (05:49→21:37)
[2018-08-10] MEDS: INSULIN SLIDING SCALE (NOVOLOG) 1 VIAL SQ SCH ×4 (06:32→21:39)
[2018-08-10 08:07] LABS: HEMATOCRIT 37.7 % (32.4-45.2); HEMOGLOBIN 12.4 GM/dL (10.7-15.3); MCH 28.7 pg (25.7-33.7); MEAN CELL VOLUME 86.9 fl (80-96); MEAN PLT VOLUME 9.9 fl (7.5-11.1); PLATELET COUNT 180 K/MM3 (134-434); RBC 4.33 M/mm3 (3.60-5.2); RDW 13.4 % (11.6-15.6); WHITE BLOOD COUNT 9.3 K/mm3 (4.0-10.0)
[2018-08-10 08:30] LABS: ANION GAP 10 MMOL/L (8-16); BLOOD UREA NITROGEN 11 mg/dL (7-18); CALCIUM 8.7 mg/dL (8.5-10.1); CHLORIDE 103 mmol/L (98-107); CO2 27 mmol/L (21-32); CREATININE 0.4 mg/dL (0.55-1.3); GLUCOSE,RANDOM 146 mg/dL (74-106); PHOSPHOROUS 3.9 mg/dL (2.5-4.9); POTASSIUM 3.8 mmol/L (3.5-5.1); SODIUM 139 mmol/L (136-145)
[2018-08-10] MEDS ORDERED: oxyCODONE HCL 5 MG TABLET PO PRN (09:30)
--- NOTE | 2018-08-10 09:37 | PN ---
Progress Note (short form) - Note Progress Note: Anesthesiology Post-op 78 y.o. woman POD#1 s/p right femur IM kevin placement under spinal anesthesia. She is awake and alert in bed this morning, speaking with her daughter on the phone. She does c/o some pain and is hesitant to move due to this. The pt. speaks mainly French, so I d/w her daughter on phone re. pain expectations, participation in PT and incentive spirometry. She did discuss this with her. Currently, she is receiving IV morphine for pain; RN states that this may have made her a bit confused overnight. Otherwise, she is stable and alert this morning, VSS, spinal resolved. No apparent anesthesia-related issues. 78 y.o. woman s/p right IM kevin placement with stable post-operative course. Will d/c IV narcotics and add PO pain meds. Encourage Incentive spirometry and PT.
[2018-08-10] MEDS ORDERED: cefTRIAXone SODIUM 1 GM VIAL ONE (09:40)
[2018-08-10] MEDS ORDERED: DEXTROSE 5%-WATER - 50 ML IVPB ONE (09:40)
--- NOTE | 2018-08-10 09:43 | CONS ---
DATE OF CONSULTATION: 08/09/2018 CHIEF COMPLAINT: Right hip pain. HISTORY OF PRESENT ILLNESS: This is an 78-year-old female who suffered a fall onto her right side. She was found to have a basicervical right hip fracture. She denies any pain elsewhere. She says the pain is felt in the right groin area. There is no radiating pain, no numbness or tingling. No previous hip injuries. Orthopedic consultation was called. PAST MEDICAL HISTORY: The patient has a past medical history of type 2 diabetes, hypertension and hyperlipidemia. PAST SURGICAL HISTORY: Denies. SOCIAL HISTORY: No alcohol, tobacco or drugs. FAMILY HISTORY: Noncontributory. ALLERGIES: None. MEDICATIONS: Reviewed; as in chart. REVIEW OF SYMPTOMS: Negative for any fever, chills, nausea, vomiting or night sweats. PHYSICAL EXAMINATION: General: The patient is an elderly female in no acute distress. She is alert and oriented x3. She is seen lying in her hospital bed. Her daughter is at her bedside. EXTREMITIES: Examination of the right lower extremity demonstrates shortening in external rotation. There is tenderness with any range of motion of the right hip. The knee is nontender. The ankle is nontender. Distally, sensation is intact to light touch. There are 2+ DP pulses. distal motor. Radiographs were reviewed demonstrating a cervical right hip fracture. ASSESSMENT: Right basicervical hip fracture. PLAN: I reviewed today's findings with the patient and her daughter. I discussed that the patient has a displaced hip fracture present. Given this finding, I would recommend operative care. We discussed the option of nonoperative care, prolonged bed rest, limited ability to walk and the potential for multiple medical complications. We discussed operative care, which involves early mobilization and minimizing risks. Operative care involves placing an intramedullary kevin. I described the procedure in detail. I reviewed surgical risks in detail, including bleeding, infection, neurovascular injury, the need for further surgery, postoperative pain and stiffness, nonunion, malunion, hardware failure or cutout. We discussed the medical risks such as heart attack, stroke, DVT, PE and . I addressed the use of perioperative antibiotics and DVT prophylaxis. I reviewed the postoperative rehabilitation protocol and the need for nursing care after the procedure. I addressed all of the patient's and her daughter's questions and concerns. The voiced an understanding and elected to proceed. She will be brought to the OR today. ARSLAN ACOSTA M.D. CLAUDIA/[id number]
[2018-08-10] MEDS: CALCIUM 500MG/VIT-D 200 UNITS COMBO TABLET (FP) PO SCH ×2 (09:44→21:38)
[2018-08-10] MEDS: CEFTRIAXONE 1 GM in DEXTROSE 5%-WATER - 50 ML IVPB SCH (09:44)
[2018-08-10] MEDS: ALPRAZolam 0.25 MG TABLET PO SCH (09:45)
[2018-08-10] MEDS: ENOXAPARIN NA (PORCINE) 40 MG/0.4 ML DISP.SYRIN SQ SCH (09:45)
[2018-08-10] MEDS: LISINOPRIL 20 MG TABLET (FP) PO SCH ×2 (09:45→21:38)
[2018-08-10] MEDS ORDERED: LISINOPRIL 20 MG TABLET (FP) PO SCH (10:00)
[2018-08-10] MEDS: oxyCODONE HCL 5 MG TABLET PO PRN ×2 (11:09→21:38)
--- NOTE | 2018-08-10 11:36 | PN ---
Physical Exam: SUBJECTIVE: Patient seen and examined. Pt. complaining of right hip pain. Pt. denies any other complaints at this time. Pt. endorses passing gas and asking about hospital course. OBJECTIVE: Vital Signs Period Temp Pulse Resp BP Sys/Mccoy Pulse Ox Last 24 Hr 97.0 F-99.1 F 64-83 16-21 140-184/65-91 94-95 GENERAL: The patient is awake, alert, and fully oriented, in mild distress. HEAD: Normal with no signs of trauma. EYES: PERRL, sclera anicteric, conjunctiva clear. No ptosis. ENT: Ears normal, nares patent, oropharynx clear without exudates, moist mucous membranes. NECK: Trachea midline, full range of motion, supple. LUNGS: Limited exam- Breath sounds equal, clear to auscultation bilaterally, no wheezes, no crackles, no accessory muscle use. HEART: Regular rate and rhythm, S1, S2 without murmur, prominent clavicular heads ABDOMEN: Soft, nontender, nondistended, normoactive bowel sounds, tympanic to percussion, no guarding, no rebound EXTREMITIES: 2+ dorsal pedal pulses, warm, no calf tenderness, well-perfused, no edema, RIGGINS spontaneously; right hip non-tender to palpation, mild erythema but no ecchymosis at site. NEUROLOGICAL: Normal speech, gait not observed. PSYCH: Normal mood, normal affect. SKIN: Warm, dry, normal turgor, no rashes or lesions noted Laboratory Results - last 24 hr 08/09/18 08/09/18 08/09/18 11:16 15:04 21:36 WBC RBC Hgb Hct MCV MCH MCHC RDW Plt Count MPV Sodium Potassium Chloride Carbon Dioxide Anion Gap BUN Creatinine Creat Clearance w eGFR POC Glucometer 138 118 227 Random Glucose Calcium Phosphorus Magnesium 08/10/18 08/10/18 08/10/18 05:38 06:45 06:45 WBC 9.3 RBC 4.33 Hgb 12.4 Hct 37.7 MCV 86.9 MCH 28.7 MCHC 33.0 RDW 13.4 Plt Count 180 MPV 9.9 Sodium 139 Potassium 3.8 Chloride 103 Carbon Dioxide 27 Anion Gap 10 BUN 11 Creatinine 0.4 L Creat Clearance w eGFR > 60 POC Glucometer 150 Random Glucose 146 H Calcium 8.7 Phosphorus 3.9 Magnesium 2.0 Active Medications Home Medications Medication Instructions Recorded Metformin HCl [Metformin HCl ER] 500 mg PO BID 10/31/14 Alprazolam [Xanax] 0.25 mg PO DAILY 08/09/18 Current Medications Alprazolam (Xanax -) 0.25 mg PO DAILY [facility] Last Admin: 08/10/18 09:45 Dose: 0.25 mg Atorvastatin Calcium (Lipitor -) 20 mg PO HS [facility] Last Admin: 08/09/18 21:41 Dose: 20 mg Calcium Carbonate/Cholecalciferol (Os-Leroy 500+D -) 1 tab PO BID [facility] Last Admin: 08/10/18 09:44 Dose: 1 tab Docusate Sodium (Colace -) 100 mg PO TID [facility] Last Admin: 08/10/18 05:49 Dose: 100 mg Enoxaparin Sodium (Lovenox -) 40 mg SQ DAILY [facility] Last Admin: 08/10/18 09:45 Dose: 40 mg Ceftriaxone Sodium 1 gm/ (Dextrose) 50 mls @ 100 mls/hr IVPB DAILY [facility]; Protocol Last Admin: 08/10/18 09:44 Dose: 100 mls/hr Lactated Ringer's (Lactated Ringers Solution) 1,000 mls @ 42 mls/hr IV ASDIR [facility] Last Admin: 08/09/18 18:09 Dose: 42 mls/hr Insulin Aspart (Novolog Vial Sliding Scale -) 1 vial SQ ACHS [facility]; Protocol Last Admin: 08/10/18 06:32 Dose: Not Given Lisinopril (Prinivil) 20 mg PO BID [facility] Last Admin: 08/10/18 09:45 Dose: 20 mg Ondansetron HCl (Zofran Injection) 4 mg IVPUSH Q6H PRN PRN Reason: NAUSEA AND/OR VOMITING Last Admin: 08/09/18 18:17 Dose: 4 mg Oxycodone HCl (Roxicodone -) 5 mg PO Q3H PRN PRN Reason: PAIN LEVEL 1-5 Last Admin: 08/10/18 11:09 Dose: 5 mg Oxycodone HCl (Roxicodone -) 10 mg PO Q3H PRN PRN Reason: PAIN LEVEL 6-10 ASSESSMENT/PLAN: Pt. is an 78 y.o. F w/ PMHx NIDDM, HTN, HLD presents to the ED with Right Hip fracture 2/2 mechanical fall, found to have asymptomatic UTI. #Right Hip Fracture 2/2 mechanical fall -POD #2 -Oxycodone 5mg and 10mg for pain 1-5 and 6-10 respectively. -LR @ 42 -PT- walked 6ft. today -Orthopedic Surgery consult (Dr. Ross) appreciated -Pt. underwent gamma nail surgery -weight bearing as tolerated -received final dose of Ceftriaxone #UTI-stable -Asymptomatic -Given Ceftriaxone empirically in ED -UCx pending- however Pt. asymptomatic at this time, no indication to continue treatment. -History of diabetes may have component in lack of symptoms. #NIDDM-stable -Glucose uncontrolled-185 -hold metformin -BGM ACHS -SSI #HLD-stable -c/w Lipitor 10mg #HTN -increased Lisinopril to 20mg BID - will restart Norvasc if BP starts to get higher -Per medication reconciliation, Pt. has not picked up ACEI or Norvasc in months #F/E/N -LR @ 42 -monitor electrolytes and replete as needed -Regular diet #PPx -DVT: Lovenox 40mg SQ -GI: not indicated Visit type - Emergency Visit Emergency Visit: Yes ED Registration Date: 08/08/18 Care time: The patient presented to the Emergency Department on the above date and was hospitalized for further evaluation of their emergent condition. - New Patient This patient is new to me today: No - Critical Care Critical Care patient: No - Discharge Referral Referred to [facility] No
--- NOTE | 2018-08-10 11:39 | EKG ---
Test Reason : Blood Pressure : / mmHG Vent. Rate : 068 BPM Atrial Rate : 068 BPM P-R Int : 144 ms QRS Dur : 134 ms QT Int : 420 ms P-R-T Axes : 035 -28 076 degrees QTc Int : 446 ms NORMAL SINUS RHYTHM RIGHT BUNDLE BRANCH BLOCK LEFT VENTRICULAR HYPERTROPHY WITH REPOLARIZATION ABNORMALITY ABNORMAL ECG WHEN COMPARED WITH ECG OF 09-AUG-2018 09:30, T WAVE INVERSION LESS EVIDENT IN ANTERIOR LEADS Confirmed by ALEX HENLEY, KATRIN ([id number]) on 08/10/2018 11:38:58 AM Referred By: ENRRIQUE PUENTES Confirmed By:KATRIN JOHNSON MD
--- NOTE | 2018-08-10 15:57 | PN ---
Teaching Attending Note Name of Resident: Mike Ochoa ATTENDING PHYSICIAN STATEMENT I saw and evaluated the patient. I reviewed the resident's note and discussed the case with the resident. I agree with the resident's findings and plan as documented. SUBJECTIVE: Patient is comfortable, c/o having right hip pain. No fever or chills, no shortness of breath. OBJECTIVE: Vital Signs Temperature 99.7 F H 08/10/18 14:54 Pulse Rate 73 08/10/18 14:54 Respiratory Rate 20 08/10/18 14:54 Blood Pressure 153/68 08/10/18 14:54 O2 Sat by Pulse Oximetry (%) 95 08/09/18 15:30 GENERAL: A&Ox3, NAD HEAD: NC/AT, EYES: PERRLA, EOMI EARS, NOSE, THROAT: Ears normal, oropharynx clear without exudates. Moist mucous membranes. NECK: Normal range of motion, supple without lymphadenopathy, JVD, or masses. LUNGS: Breath sounds equal, clear to auscultation bilaterally. No wheezes, and no crackles. No accessory muscle use. HEART: Regular rate and rhythm, normal S1 and S2 without murmur, rub or gallop. ABDOMEN: Soft, nontender, not distended, normoactive bowel sounds, No hepatomegaly or splenomegaly. EXTREMITIES: 2+ pulses, warm, well-perfused. No edema. s/p right hip surgery NEUROLOGICAL: Cranial nerves II-XII intact. Normal speech. Gait not assessed. PSYCHIATRIC: Cooperative. Good eye contact. Appropriate mood and affect. SKIN: Warm, dry, normal turgor, no rashes or lesions noted, normal capillary refill. CBCD WBC 9.3 K/mm3 (4.0-10.0) 08/10/18 06:45 RBC 4.33 M/mm3 (3.60-5.2) 08/10/18 06:45 Hgb 12.4 GM/dL (10.7-15.3) 08/10/18 06:45 Hct 37.7 % (32.4-45.2) 08/10/18 06:45 MCV 86.9 fl (80-96) 08/10/18 06:45 MCHC 33.0 g/dl (32.0-36.0) 08/10/18 06:45 RDW 13.4 % (11.6-15.6) 08/10/18 06:45 Plt Count 180 K/MM3 (134-434) 08/10/18 06:45 MPV 9.9 fl (7.5-11.1) 08/10/18 06:45 CMP Sodium 139 mmol/L (136-145) 08/10/18 06:45 Potassium 3.8 mmol/L (3.5-5.1) 08/10/18 06:45 Chloride 103 mmol/L (98-107) 08/10/18 06:45 Carbon Dioxide 27 mmol/L (21-32) 08/10/18 06:45 Anion Gap 10 MMOL/L (8-16) 08/10/18 06:45 BUN 11 mg/dL (7-18) 08/10/18 06:45 Creatinine 0.4 mg/dL (0.55-1.3) L 08/10/18 06:45 Creat Clearance w eGFR > 60 (>60) 08/10/18 06:45 Random Glucose 146 mg/dL (74-106) H 08/10/18 06:45 Calcium 8.7 mg/dL (8.5-10.1) 08/10/18 06:45 Total Bilirubin 0.3 mg/dL (0.2-1) 08/08/18 20:50 AST 15 U/L (15-37) 08/08/18 20:50 ALT 23 U/L (13-61) 08/08/18 20:50 Alkaline Phosphatase 81 U/L (45-117) 08/08/18 20:50 Total Protein 7.2 g/dl (6.4-8.2) 08/08/18 20:50 Albumin 4.0 g/dl (3.4-5.0) 08/08/18 20:50 CARDIAC ENZYMES Troponin I 0.03 ng/ml (0.00-0.05) 08/08/18 20:50 Current Medications Generic Name Dose Route Start Last Admin Trade Name Freq PRN Reason Stop Dose Admin Alprazolam 0.25 mg 08/10/18 10:00 08/10/18 09:45 Xanax - PO 0.25 mg DAILY TERRENCE Administration Atorvastatin Calcium 20 mg 08/09/18 22:00 08/09/18 21:41 Lipitor - PO 20 mg HS TERRENCE Administration Calcium Carbonate/Cholecalciferol 1 tab 08/09/18 22:00 08/10/18 09:44 Os-Leroy 500+D - PO 1 tab BID TERRENCE Administration Docusate Sodium 100 mg 08/09/18 22:00 08/10/18 13:43 Colace - PO 100 mg TID TERRENCE Administration Enoxaparin Sodium 40 mg 08/10/18 10:00 08/10/18 09:45 Lovenox - SQ 40 mg DAILY TERRENCE Administration Ceftriaxone Sodium 1 gm/ 50 mls @ 100 mls/hr 08/10/18 10:00 08/10/18 09:44 Dextrose IVPB 100 mls/hr DAILY TERRENCE Administration Protocol Lactated Ringer's 1,000 mls @ 42 mls/hr 08/09/18 15:18 08/09/18 18:09 Lactated Ringers Solution IV 42 mls/hr ASDIR TERRENCE Administration Insulin Aspart 1 vial 08/09/18 16:30 08/10/18 13:43 Novolog Vial Sliding Scale - SQ Not Given ACHS [facility] Protocol Lisinopril 20 mg 08/10/18 10:00 08/10/18 09:45 Prinivil PO 20 mg BID TERRENCE Administration Ondansetron HCl 4 mg 08/09/18 15:18 08/09/18 18:17 Zofran Injection IVPUSH 4 mg Q6H PRN Administration NAUSEA AND/OR VOMITING Oxycodone HCl 5 mg 08/10/18 09:30 08/10/18 11:09 Roxicodone - PO 5 mg Q3H PRN Administration PAIN LEVEL 1-5 Oxycodone HCl 10 mg 08/10/18 09:30 Roxicodone - PO Q3H PRN PAIN LEVEL 6-10 Home Medications Medication Instructions Recorded Metformin HCl [Metformin HCl ER] 500 mg PO BID 10/31/14 Alprazolam [Xanax] 0.25 mg PO DAILY 08/09/18 Microbiology 08/08/18 20:39 Urine - Urine Clean Catch Urine Culture - Final NO GROWTH OBTAINED ASSESSMENT AND PLAN: Patient is an 78 y/o F w/ PMHx T2DM, HTN, HLD s/p fall with R hip Fx due to mechanical fall. #POD #1 s/p Right hip intramedullary nail s/p right fx due to mechanical fall. Oxycodone for pain. #UTI: received multiple dose of ceftriaxone . UCx is pending. #T2DM: hold metformin, BGM ACHS, SSI #HLD: continue with Lipitor , hold zocor due to DDI with Amlodipine and zocor. #HTN: continue amlodipine , lisinopril 20 BID DVT px: Lovenox sq
--- NOTE | 2018-08-10 17:24 | PN ---
Progress Note (short form) - Note Progress Note: Pt lying comf in bed. Pain controlled. Last Vital Signs Temp Pulse Resp BP Pulse Ox 99.7 F H 73 20 153/68 95 08/10/18 14:54 08/10/18 14:54 08/10/18 14:54 08/10/18 14:54 08/09/18 15:30 RLE dressings cdi calves soft nt ehl fhl ta g s sens int to LT 2+ dp Laboratory Results - last 24 hr 08/09/18 08/10/18 08/10/18 21:36 05:38 06:45 WBC 9.3 RBC 4.33 Hgb 12.4 Hct 37.7 MCV 86.9 MCH 28.7 MCHC 33.0 RDW 13.4 Plt Count 180 MPV 9.9 Sodium Potassium Chloride Carbon Dioxide Anion Gap BUN Creatinine Creat Clearance w eGFR POC Glucometer 227 150 Random Glucose Calcium Phosphorus Magnesium 08/10/18 06:45 WBC RBC Hgb Hct MCV MCH MCHC RDW Plt Count MPV Sodium 139 Potassium 3.8 Chloride 103 Carbon Dioxide 27 Anion Gap 10 BUN 11 Creatinine 0.4 L Creat Clearance w eGFR > 60 POC Glucometer Random Glucose 146 H Calcium 8.7 Phosphorus 3.9 Magnesium 2.0 a/p POD 1 R femoral nail -wbat -PT -pain ctrl (minimize narcotics) -dvt proph -oob/ambulate -f/u AM HCT
[2018-08-10] MEDS: ATORVASTATIN CA 20 MG TABLET (FP) PO SCH (21:38)
[2018-08-11] MEDS: DOCUSATE SODIUM 100 MG CAPSULE (FP) PO SCH ×3 (06:17→21:13)
[2018-08-11] MEDS: INSULIN SLIDING SCALE (NOVOLOG) 1 VIAL SQ SCH ×4 (06:17→21:14)
[2018-08-11 08:25] LABS: HEMATOCRIT 36.3 % (32.4-45.2); MCH 28.9 pg (25.7-33.7); MCHC 33.1 g/dl (32.0-36.0); MEAN CELL VOLUME 87.3 fl (80-96); MEAN PLT VOLUME 9.7 fl (7.5-11.1); PLATELET COUNT 156 K/MM3 (134-434); RBC 4.16 M/mm3 (3.60-5.2); RDW 13.8 % (11.6-15.6); WHITE BLOOD COUNT 7.7 K/mm3 (4.0-10.0)
[2018-08-11 09:03] LABS: ANION GAP 10 MMOL/L (8-16); BLOOD UREA NITROGEN 13 mg/dL (7-18); CALCIUM 8.2 mg/dL (8.5-10.1); CHLORIDE 104 mmol/L (98-107); CO2 27 mmol/L (21-32); CREATININE 0.5 mg/dL (0.55-1.3); GLUCOSE,RANDOM 147 mg/dL (74-106); MAGNESIUM 2.1 mg/dL (1.8-2.4); PHOSPHOROUS 3.4 mg/dL (2.5-4.9); POTASSIUM 3.9 mmol/L (3.5-5.1); SODIUM 141 mmol/L (136-145)
[2018-08-11] MEDS ORDERED: cefTRIAXone SODIUM 1 GM VIAL ONE (09:08)
[2018-08-11] MEDS: CALCIUM 500MG/VIT-D 200 UNITS COMBO TABLET (FP) PO SCH ×2 (09:20→21:13)
[2018-08-11] MEDS: ALPRAZolam 0.25 MG TABLET PO SCH (09:20)
[2018-08-11] MEDS: LISINOPRIL 20 MG TABLET (FP) PO SCH ×2 (09:21→21:13)
[2018-08-11] MEDS: CEFTRIAXONE 1 GM in DEXTROSE 5%-WATER - 50 ML IVPB SCH (09:21)
[2018-08-11] MEDS: ENOXAPARIN NA (PORCINE) 40 MG/0.4 ML DISP.SYRIN SQ SCH (09:21)
[2018-08-11] MEDS ORDERED: INSULIN (NOVOLOG) ASPART 100 UNITS/ML 10ML VIAL ONE ×3 (11:02→21:12)
--- NOTE | 2018-08-11 13:18 | PN ---
Progress Note (short form) - Note Progress Note: Pt lying comf in bed. Pain controlled. Last Vital Signs Temp Pulse Resp BP Pulse Ox 98.7 F 62 20 158/93 96 08/11/18 10:00 08/11/18 10:00 08/11/18 10:00 08/11/18 10:00 08/10/18 22:00 RLE dressings cdi calves soft nt ehl fhl ta g s sens int to LT 2+ dp Laboratory Results - last 24 hr 08/10/18 08/10/18 08/11/18 17:05 21:35 05:46 WBC RBC Hgb Hct MCV MCH MCHC RDW Plt Count MPV Sodium Potassium Chloride Carbon Dioxide Anion Gap BUN Creatinine Creat Clearance w eGFR POC Glucometer 155 155 145 Random Glucose Calcium Phosphorus Magnesium 08/11/18 08/11/18 08/11/18 07:30 07:30 11:15 WBC 7.7 RBC 4.16 Hgb 12.0 Hct 36.3 MCV 87.3 MCH 28.9 MCHC 33.1 RDW 13.8 Plt Count 156 MPV 9.7 Sodium 141 Potassium 3.9 Chloride 104 Carbon Dioxide 27 Anion Gap 10 BUN 13 Creatinine 0.5 L Creat Clearance w eGFR > 60 POC Glucometer 175 Random Glucose 147 H Calcium 8.2 L Phosphorus 3.4 Magnesium 2.1 a/p POD 2 R femoral nail -wbat -PT -pain ctrl (minimize narcotics) -dvt proph -oob/ambulate -stable for d/c to SNF
--- NOTE | 2018-08-11 14:56 | PN ---
Progress Note (short form) - Note Progress Note: Patient is better today ,but continues to have pain Vital Signs Temperature 98.7 F 08/11/18 10:00 Pulse Rate 62 08/11/18 10:00 Respiratory Rate 20 08/11/18 10:00 Blood Pressure 158/93 08/11/18 10:00 O2 Sat by Pulse Oximetry (%) 96 08/10/18 22:00 GENERAL: A&Ox3, NAD HEAD: NC/AT, EYES: PERRLA, EOMI EARS, NOSE, THROAT: Ears normal, oropharynx clear without exudates. Moist mucous membranes. NECK: Normal range of motion, supple without lymphadenopathy, JVD, or masses. LUNGS: Breath sounds equal, clear to auscultation bilaterally. No wheezes, and no crackles. No accessory muscle use. HEART: Regular rate and rhythm, normal S1 and S2 without murmur, rub or gallop. ABDOMEN: Soft, nontender, not distended, normoactive bowel sounds, No hepatomegaly or splenomegaly. EXTREMITIES: 2+ pulses, warm, well-perfused. No edema. s/p right hip surgery NEUROLOGICAL: Cranial nerves II-XII intact. Normal speech. Gait not assessed. PSYCHIATRIC: Cooperative. Good eye contact. Appropriate mood and affect. SKIN: Warm, dry, normal turgor, no rashes or lesions noted, normal capillary refill. CBCD WBC 7.7 K/mm3 (4.0-10.0) 08/11/18 07:30 RBC 4.16 M/mm3 (3.60-5.2) 08/11/18 07:30 Hgb 12.0 GM/dL (10.7-15.3) 08/11/18 07:30 Hct 36.3 % (32.4-45.2) 08/11/18 07:30 MCV 87.3 fl (80-96) 08/11/18 07:30 MCHC 33.1 g/dl (32.0-36.0) 08/11/18 07:30 RDW 13.8 % (11.6-15.6) 08/11/18 07:30 Plt Count 156 K/MM3 (134-434) 08/11/18 07:30 MPV 9.7 fl (7.5-11.1) 08/11/18 07:30 CMP Sodium 141 mmol/L (136-145) 08/11/18 07:30 Potassium 3.9 mmol/L (3.5-5.1) 08/11/18 07:30 Chloride 104 mmol/L (98-107) 08/11/18 07:30 Carbon Dioxide 27 mmol/L (21-32) 08/11/18 07:30 Anion Gap 10 MMOL/L (8-16) 08/11/18 07:30 BUN 13 mg/dL (7-18) 08/11/18 07:30 Creatinine 0.5 mg/dL (0.55-1.3) L 08/11/18 07:30 Creat Clearance w eGFR > 60 (>60) 08/11/18 07:30 Random Glucose 147 mg/dL (74-106) H 08/11/18 07:30 Calcium 8.2 mg/dL (8.5-10.1) L 08/11/18 07:30 Total Bilirubin 0.3 mg/dL (0.2-1) 08/08/18 20:50 AST 15 U/L (15-37) 08/08/18 20:50 ALT 23 U/L (13-61) 08/08/18 20:50 Alkaline Phosphatase 81 U/L (45-117) 08/08/18 20:50 Total Protein 7.2 g/dl (6.4-8.2) 08/08/18 20:50 Albumin 4.0 g/dl (3.4-5.0) 08/08/18 20:50 CARDIAC ENZYMES Troponin I 0.03 ng/ml (0.00-0.05) 08/08/18 20:50 Current Medications Generic Name Dose Route Start Last Admin Trade Name Deng PRN Reason Stop Dose Admin Alprazolam 0.25 mg 08/10/18 10:00 08/11/18 09:20 Xanax - PO 0.25 mg DAILY TERRENCE Administration Atorvastatin Calcium 20 mg 08/09/18 22:00 08/10/18 21:38 Lipitor - PO 20 mg HS TERRENCE Administration Calcium Carbonate/Cholecalciferol 1 tab 08/09/18 22:00 08/11/18 09:20 Os-Leroy 500+D - PO 1 tab BID TERRENCE Administration Docusate Sodium 100 mg 08/09/18 22:00 08/11/18 06:17 Colace - PO 100 mg TID TERRENCE Administration Enoxaparin Sodium 40 mg 08/10/18 10:00 08/11/18 09:21 Lovenox - SQ 40 mg DAILY TERRENCE Administration Ceftriaxone Sodium 1 gm/ 50 mls @ 100 mls/hr 08/10/18 10:00 08/11/18 09:21 Dextrose IVPB 100 mls/hr DAILY TERRENCE Administration Protocol Lactated Ringer's 1,000 mls @ 42 mls/hr 08/09/18 15:18 08/09/18 18:09 Lactated Ringers Solution IV 42 mls/hr ASDIR TERRENCE Administration Insulin Aspart 1 vial 08/09/18 16:30 08/11/18 11:17 Novolog Vial Sliding Scale - SQ 2 units ACHS TERRENCE Administration Protocol Lisinopril 20 mg 08/10/18 10:00 08/11/18 09:21 Prinivil PO 20 mg BID TERRENCE Administration Ondansetron HCl 4 mg 08/09/18 15:18 08/09/18 18:17 Zofran Injection IVPUSH 4 mg Q6H PRN Administration NAUSEA AND/OR VOMITING Oxycodone HCl 5 mg 08/10/18 09:30 08/10/18 21:38 Roxicodone - PO 5 mg Q3H PRN Administration PAIN LEVEL 1-5 Oxycodone HCl 10 mg 08/10/18 09:30 Roxicodone - PO Q3H PRN PAIN LEVEL 6-10 Home Medications Medication Instructions Recorded Metformin HCl [Metformin HCl ER] 500 mg PO BID 10/31/14 Alprazolam [Xanax] 0.25 mg PO DAILY 08/09/18 08/08/18 20:39 Urine - Urine Clean Catch Urine Culture - Final NO GROWTH OBTAINED ASSESSMENT AND PLAN: Patient is an 78 y/o F w/ PMHx T2DM, HTN, HLD s/p fall with R hip Fx due to mechanical fall. #POD #2 s/p Right hip intramedullary nail s/p right fx due to mechanical fall. Oxycodone for pain prn. #UTI: received multiple dose of ceftriaxone . UCx is no growth. no further Rocephin needed #T2DM: hold metformin, BGM ACHS, SSI #HLD: continue with Lipitor , hold zocor due to DDI with Amlodipine and zocor. #HTN: continue amlodipine , lisinopril 20 BID DVT px: Lovenox sq Visit type - Emergency Visit Emergency Visit: Yes ED Registration Date: 08/08/18 Care time: The patient presented to the Emergency Department on the above date and was hospitalized for further evaluation of their emergent condition. - New Patient This patient is new to me today: No - Critical Care Critical Care patient: No - Discharge Referral Referred to [facility] Med P.C.: No
[2018-08-11] MEDS: ATORVASTATIN CA 20 MG TABLET (FP) PO SCH (21:13)
[2018-08-11] MEDS: oxyCODONE HCL 5 MG TABLET PO PRN (21:13)
[2018-08-12] MEDS: oxyCODONE HCL 5 MG TABLET PO PRN ×3 (06:01→20:40)
[2018-08-12] MEDS: DOCUSATE SODIUM 100 MG CAPSULE (FP) PO SCH ×3 (06:01→21:12)
[2018-08-12] MEDS: INSULIN SLIDING SCALE (NOVOLOG) 1 VIAL SQ SCH ×4 (06:26→21:10)
--- NOTE | 2018-08-12 08:09 | PN ---
Teaching Attending Note Name of Resident: Charo Sibley ATTENDING PHYSICIAN STATEMENT I saw and evaluated the patient. I reviewed the resident's note and discussed the case with the resident. I agree with the resident's findings and plan as documented. SUBJECTIVE: Patient is feeling better today , was able to take some steps. OBJECTIVE: Vital Signs Temperature 98.9 F 08/12/18 05:33 Pulse Rate 78 08/12/18 07:30 Respiratory Rate 18 08/12/18 07:30 Blood Pressure 142/71 08/12/18 07:30 O2 Sat by Pulse Oximetry (%) 96 08/11/18 21:00 GENERAL: A&Ox3, NAD HEAD: NC/AT, EYES: PERRLA, EOMI EARS, NOSE, THROAT: Ears normal, oropharynx clear without exudates. Moist mucous membranes. NECK: Normal range of motion, supple without lymphadenopathy, JVD, or masses. LUNGS: Breath sounds equal, clear to auscultation bilaterally. No wheezes, and no crackles. No accessory muscle use. HEART: Regular rate and rhythm, normal S1 and S2 without murmur, rub or gallop. ABDOMEN: Soft, nontender, not distended, normoactive bowel sounds, No hepatomegaly or splenomegaly. EXTREMITIES: 2+ pulses, warm, well-perfused. No edema. s/p right hip surgery NEUROLOGICAL: Cranial nerves II-XII intact. Normal speech. Gait not assessed. PSYCHIATRIC: Cooperative. Good eye contact. Appropriate mood and affect. SKIN: Warm, dry, normal turgor, no rashes or lesions noted, normal capillary refill. CBCD WBC 7.7 K/mm3 (4.0-10.0) 08/11/18 07:30 RBC 4.16 M/mm3 (3.60-5.2) 08/11/18 07:30 Hgb 12.0 GM/dL (10.7-15.3) 08/11/18 07:30 Hct 36.3 % (32.4-45.2) 08/11/18 07:30 MCV 87.3 fl (80-96) 08/11/18 07:30 MCHC 33.1 g/dl (32.0-36.0) 08/11/18 07:30 RDW 13.8 % (11.6-15.6) 08/11/18 07:30 Plt Count 156 K/MM3 (134-434) 08/11/18 07:30 MPV 9.7 fl (7.5-11.1) 08/11/18 07:30 CMP Sodium 141 mmol/L (136-145) 08/11/18 07:30 Potassium 3.9 mmol/L (3.5-5.1) 08/11/18 07:30 Chloride 104 mmol/L (98-107) 08/11/18 07:30 Carbon Dioxide 27 mmol/L (21-32) 08/11/18 07:30 Anion Gap 10 MMOL/L (8-16) 08/11/18 07:30 BUN 13 mg/dL (7-18) 08/11/18 07:30 Creatinine 0.5 mg/dL (0.55-1.3) L 08/11/18 07:30 Creat Clearance w eGFR > 60 (>60) 08/11/18 07:30 Random Glucose 147 mg/dL (74-106) H 08/11/18 07:30 Calcium 8.2 mg/dL (8.5-10.1) L 08/11/18 07:30 Total Bilirubin 0.3 mg/dL (0.2-1) 08/08/18 20:50 AST 15 U/L (15-37) 08/08/18 20:50 ALT 23 U/L (13-61) 08/08/18 20:50 Alkaline Phosphatase 81 U/L (45-117) 08/08/18 20:50 Total Protein 7.2 g/dl (6.4-8.2) 08/08/18 20:50 Albumin 4.0 g/dl (3.4-5.0) 08/08/18 20:50 CARDIAC ENZYMES Troponin I 0.03 ng/ml (0.00-0.05) 08/08/18 20:50 Current Medications Generic Name Dose Route Start Last Admin Trade Name Freq PRN Reason Stop Dose Admin Alprazolam 0.25 mg 08/10/18 10:00 08/11/18 09:20 Xanax - PO 0.25 mg DAILY TERRENCE Administration Atorvastatin Calcium 20 mg 08/09/18 22:00 08/11/18 21:13 Lipitor - PO 20 mg HS TERRENCE Administration Calcium Carbonate/Cholecalciferol 1 tab 08/09/18 22:00 08/11/18 21:13 Os-Leroy 500+D - PO 1 tab BID TERRENCE Administration Docusate Sodium 100 mg 08/09/18 22:00 08/12/18 06:01 Colace - PO 100 mg TID TERRENCE Administration Enoxaparin Sodium 40 mg 08/10/18 10:00 08/11/18 09:21 Lovenox - SQ 40 mg DAILY TERRENCE Administration Ceftriaxone Sodium 1 gm/ 50 mls @ 100 mls/hr 08/10/18 10:00 08/11/18 09:21 Dextrose IVPB 100 mls/hr DAILY TERRENCE Administration Protocol Lactated Ringer's 1,000 mls @ 42 mls/hr 08/09/18 15:18 08/09/18 18:09 Lactated Ringers Solution IV 42 mls/hr ASDIR TERRENCE Administration Insulin Aspart 1 vial 08/09/18 16:30 08/12/18 06:26 Novolog Vial Sliding Scale - SQ 2 units ACHS TERRENCE Administration Protocol Lisinopril 20 mg 08/10/18 10:00 08/11/18 21:13 Prinivil PO 20 mg BID TERRENCE Administration Ondansetron HCl 4 mg 08/09/18 15:18 08/09/18 18:17 Zofran Injection IVPUSH 4 mg Q6H PRN Administration NAUSEA AND/OR VOMITING Oxycodone HCl 5 mg 08/10/18 09:30 08/12/18 06:01 Roxicodone - PO 5 mg Q3H PRN Administration PAIN LEVEL 1-5 Oxycodone HCl 10 mg 08/10/18 09:30 Roxicodone - PO Q3H PRN PAIN LEVEL 6-10 Home Medications Medication Instructions Recorded Metformin HCl [Metformin HCl ER] 500 mg PO BID 10/31/14 Alprazolam [Xanax] 0.25 mg PO DAILY 08/09/18 08/08/18 20:39 Urine - Urine Clean Catch Urine Culture - Final NO GROWTH OBTAINED ASSESSMENT AND PLAN: Patient is an 78 y/o F w/ PMHx T2DM, HTN, HLD s/p fall with R hip Fx due to mechanical fall. #POD #3 s/p Right hip intramedullary nail s/p right fx due to mechanical fall. Oxycodone for pain prn. #UTI: received multiple dose of ceftriaxone . UCx is no growth. no further Rocephin needed #T2DM: hold metformin, BGM ACHS, SSI #HLD: continue with Lipitor , hold zocor due to DDI with Amlodipine and zocor. #HTN: continue amlodipine , lisinopril 20 BID DVT px: Lovenox sq to rehab. in am
[2018-08-12] MEDS ORDERED: PT OWN MED DRAWER 7, Y5N ONE (09:31)
[2018-08-12] MEDS: ALPRAZolam 0.25 MG TABLET PO SCH (09:33)
[2018-08-12] MEDS: CALCIUM 500MG/VIT-D 200 UNITS COMBO TABLET (FP) PO SCH ×2 (09:33→21:09)
[2018-08-12] MEDS: ENOXAPARIN NA (PORCINE) 40 MG/0.4 ML DISP.SYRIN SQ SCH (09:34)
[2018-08-12] MEDS: LISINOPRIL 20 MG TABLET (FP) PO SCH ×2 (09:34→22:00)
--- NOTE | 2018-08-12 09:49 | PN ---
Physical Exam: SUBJECTIVE: Patient seen and examined at bedside. Received 5mg roxicodone x 1 this AM. Still w/ continued lower extremity pain and soreness. Also c/o constipation and decreased appetite. No further complaint. OBJECTIVE: Vital Signs Period Temp Pulse Resp BP Sys/Mccoy Pulse Ox Last 24 Hr 98.5 F-98.9 F 62-96 18-20 142-172/71-93 96 GENERAL: The patient is resting in bed. awake, alert, and fully oriented, in no acute distress. HEAD: Normal with no signs of trauma. EYES: PERRL, extraocular movements intact, sclera anicteric, conjunctiva clear. ENT: Ears normal, nares patent, oropharynx clear without exudates, moist mucous membranes. NECK: Trachea midline, supple. LUNGS: Breath sounds equal, clear to auscultation bilaterally, no wheezes, no crackles, no accessory muscle use. HEART: Regular rate and rhythm, S1, S2 without murmur, rub or gallop. ABDOMEN: Soft, nontender, nondistended EXTREMITIES: 2+ pt pulses, warm, well-perfused, no edema. +R thigh: with lateral dressing, without drainage. Diffusely TTP surrounding area. NEUROLOGICAL: Cranial nerves II through XII grossly intact. PSYCH: Normal mood, normal affect. SKIN: Warm, dry, normal turgor Laboratory Results - last 24 hr 08/11/18 08/11/18 08/11/18 11:15 16:39 20:59 POC Glucometer 175 152 174 08/12/18 05:59 POC Glucometer 152 Active Medications Generic Name Dose Route Start Last Admin Trade Name Deng PRN Reason Stop Dose Admin Alprazolam 0.25 mg 08/10/18 10:00 08/12/18 09:33 Xanax - PO 0.25 mg DAILY TERRENCE Administration Atorvastatin Calcium 20 mg 08/09/18 22:00 08/11/18 21:13 Lipitor - PO 20 mg HS TERRENCE Administration Calcium Carbonate/Cholecalciferol 1 tab 08/09/18 22:00 08/12/18 09:33 Os-Leroy 500+D - PO 1 tab BID TERRENCE Administration Docusate Sodium 100 mg 08/09/18 22:00 08/12/18 06:01 Colace - PO 100 mg TID TERRENCE Administration Enoxaparin Sodium 40 mg 08/10/18 10:00 08/12/18 09:34 Lovenox - SQ 40 mg DAILY TERRENCE Administration Insulin Aspart 1 vial 08/09/18 16:30 08/12/18 06:26 Novolog Vial Sliding Scale - SQ 2 units ACHS TERRENCE Administration Protocol Lisinopril 20 mg 08/10/18 10:00 08/12/18 09:34 Prinivil PO 20 mg BID TERRENCE Administration Ondansetron HCl 4 mg 08/09/18 15:18 08/09/18 18:17 Zofran Injection IVPUSH 4 mg Q6H PRN Administration NAUSEA AND/OR VOMITING Oxycodone HCl 5 mg 08/10/18 09:30 08/12/18 06:01 Roxicodone - PO 5 mg Q3H PRN Administration PAIN LEVEL 1-5 Oxycodone HCl 10 mg 08/10/18 09:30 Roxicodone - PO Q3H PRN PAIN LEVEL 6-10 Senna 1 tab 08/12/18 22:00 Senna - PO HS [facility] ASSESSMENT/PLAN: 78 y/o F with PMH Type 2 DM, HTN, HLD who presented s/p fall and was found to have a R IT fx. #R IT fx; PO Day 3 R gamma nail -with mild improvement in sx, continue work with PT. Yesterday ambulated 6 feet shuffling -olivia 5mg q6h -c/w IS; prevent atelectasis -c/w colace. have added senna to regimen, 2 stat glycerin suppositories. likely constipated 2/2 pain control. #UTI-resolved -asymptomatic, UCx (-). Have d/c rocephin #Type 2 DM -C/w ISS, BGM -Hold metformin #HTN-uncontrolled -likely 2/2 pain -c/w lisinopril 20mg BID #F/E/N -monitor off IVF -continue to follow lytes -dysphagia puree diet #PPX Lovenox 40mg SQ daily #Dispo continued monitoring on med-surg; follow PT session progress Visit type - Emergency Visit Emergency Visit: No - New Patient This patient is new to me today: No - Critical Care Critical Care patient: No
[2018-08-12] MEDS ORDERED: INSULIN (NOVOLOG) ASPART 100 UNITS/ML 10ML VIAL ONE (10:28)
[2018-08-12] MEDS ORDERED: GLYCERIN 1 RECTAL SUPPOSITORY, ADULT RC ONE (10:30)
[2018-08-12] MEDS: ATORVASTATIN CA 20 MG TABLET (FP) PO SCH (21:09)
[2018-08-12] MEDS: SENNOSIDES 8.6MG TABLET (FP) PO SCH (21:09)
[2018-08-13] MEDS: DOCUSATE SODIUM 100 MG CAPSULE (FP) PO SCH ×3 (05:48→21:53)
[2018-08-13] MEDS: INSULIN SLIDING SCALE (NOVOLOG) 1 VIAL SQ SCH ×4 (06:23→21:59)
[2018-08-13] MEDS: CALCIUM 500MG/VIT-D 200 UNITS COMBO TABLET (FP) PO SCH ×2 (09:03→21:53)
[2018-08-13] MEDS: ENOXAPARIN NA (PORCINE) 40 MG/0.4 ML DISP.SYRIN SQ SCH (09:03)
[2018-08-13] MEDS: LISINOPRIL 20 MG TABLET (FP) PO SCH ×2 (09:03→21:53)
[2018-08-13] MEDS: ALPRAZolam 0.25 MG TABLET PO SCH (09:03)
--- NOTE | 2018-08-13 09:07 | PN ---
Teaching Attending Note Name of Resident: Mike Ochoa ATTENDING PHYSICIAN STATEMENT I saw and evaluated the patient. I reviewed the resident's note and discussed the case with the resident. I agree with the resident's findings and plan as documented. SUBJECTIVE: Patient continues to have pain due to her recent sx. OBJECTIVE: Vital Signs Temperature 98.2 F 08/13/18 05:02 Pulse Rate 80 08/13/18 05:02 Respiratory Rate 20 08/13/18 05:02 Blood Pressure 154/76 08/13/18 05:02 O2 Sat by Pulse Oximetry (%) 96 08/12/18 21:00 GENERAL: A&Ox3, NAD HEAD: NC/AT, EYES: PERRLA, EOMI EARS, NOSE, THROAT: Ears normal, oropharynx clear without exudates. Moist mucous membranes. NECK: Normal range of motion, supple without lymphadenopathy, JVD, or masses. LUNGS: Breath sounds equal, clear to auscultation bilaterally. No wheezes, and no crackles. No accessory muscle use. HEART: Regular rate and rhythm, normal S1 and S2 without murmur, rub or gallop. ABDOMEN: Soft, nontender, not distended, normoactive bowel sounds, No hepatomegaly or splenomegaly. EXTREMITIES: 2+ pulses, warm, well-perfused. No edema. s/p right hip surgery NEUROLOGICAL: Cranial nerves II-XII intact. Normal speech. Gait not assessed. PSYCHIATRIC: Cooperative. Good eye contact. Appropriate mood and affect. SKIN: Warm, dry, normal turgor, no rashes or lesions noted, normal capillary refill. CBCD WBC 7.7 K/mm3 (4.0-10.0) 08/11/18 07:30 RBC 4.16 M/mm3 (3.60-5.2) 08/11/18 07:30 Hgb 12.0 GM/dL (10.7-15.3) 08/11/18 07:30 Hct 36.3 % (32.4-45.2) 08/11/18 07:30 MCV 87.3 fl (80-96) 08/11/18 07:30 MCHC 33.1 g/dl (32.0-36.0) 08/11/18 07:30 RDW 13.8 % (11.6-15.6) 08/11/18 07:30 Plt Count 156 K/MM3 (134-434) 08/11/18 07:30 MPV 9.7 fl (7.5-11.1) 08/11/18 07:30 CMP Sodium 141 mmol/L (136-145) 08/11/18 07:30 Potassium 3.9 mmol/L (3.5-5.1) 08/11/18 07:30 Chloride 104 mmol/L (98-107) 08/11/18 07:30 Carbon Dioxide 27 mmol/L (21-32) 08/11/18 07:30 Anion Gap 10 MMOL/L (8-16) 08/11/18 07:30 BUN 13 mg/dL (7-18) 08/11/18 07:30 Creatinine 0.5 mg/dL (0.55-1.3) L 08/11/18 07:30 Creat Clearance w eGFR > 60 (>60) 08/11/18 07:30 Random Glucose 147 mg/dL (74-106) H 08/11/18 07:30 Calcium 8.2 mg/dL (8.5-10.1) L 08/11/18 07:30 Total Bilirubin 0.3 mg/dL (0.2-1) 08/08/18 20:50 AST 15 U/L (15-37) 08/08/18 20:50 ALT 23 U/L (13-61) 08/08/18 20:50 Alkaline Phosphatase 81 U/L (45-117) 08/08/18 20:50 Total Protein 7.2 g/dl (6.4-8.2) 08/08/18 20:50 Albumin 4.0 g/dl (3.4-5.0) 08/08/18 20:50 CARDIAC ENZYMES Troponin I 0.03 ng/ml (0.00-0.05) 08/08/18 20:50 Current Medications Generic Name Dose Route Start Last Admin Trade Name Freq PRN Reason Stop Dose Admin Alprazolam 0.25 mg 08/10/18 10:00 08/13/18 09:03 Xanax - PO 0.25 mg DAILY TERRENCE Administration Atorvastatin Calcium 20 mg 08/09/18 22:00 08/12/18 21:09 Lipitor - PO 20 mg HS TERRENCE Administration Calcium Carbonate/Cholecalciferol 1 tab 08/09/18 22:00 08/13/18 09:03 Os-Leroy 500+D - PO 1 tab BID TERRENCE Administration Docusate Sodium 100 mg 08/09/18 22:00 08/13/18 05:48 Colace - PO 100 mg TID TERRENCE Administration Enoxaparin Sodium 40 mg 08/10/18 10:00 08/13/18 09:03 Lovenox - SQ 40 mg DAILY TERRENCE Administration Insulin Aspart 1 vial 08/09/18 16:30 08/13/18 06:23 Novolog Vial Sliding Scale - SQ 2 units ACHS TERRENCE Administration Protocol Lisinopril 20 mg 08/10/18 10:00 08/13/18 09:03 Prinivil PO 20 mg BID TERRENCE Administration Ondansetron HCl 4 mg 08/09/18 15:18 08/09/18 18:17 Zofran Injection IVPUSH 4 mg Q6H PRN Administration NAUSEA AND/OR VOMITING Oxycodone HCl 5 mg 08/12/18 10:09 08/12/18 20:40 Roxicodone - PO 5 mg Q6H PRN Administration PAIN LEVEL 1-5 Senna 1 tab 08/12/18 22:00 08/12/18 21:09 Senna - PO 1 tab HS TERRENCE Administration Home Medications Medication Instructions Recorded Metformin HCl [Metformin HCl ER] 500 mg PO BID 10/31/14 Alprazolam [Xanax] 0.25 mg PO DAILY 08/09/18 08/08/18 20:39 Urine - Urine Clean Catch Urine Culture - Final NO GROWTH OBTAINED ASSESSMENT AND PLAN: Patient is an 78 y/o F w/ PMHx T2DM, HTN, HLD s/p fall with R hip Fx due to mechanical fall. #POD #3 s/p Right hip intramedullary nail s/p right fx due to mechanical fall. Oxycodone for pain prn. Patient can be discharged to rehab. (waiting for authorization) #UTI: received multiple dose of ceftriaxone . UCx is no growth. no further Rocephin needed #T2DM: hold metformin, BGM ACHS, SSI #HLD: continue with Lipitor , hold zocor due to DDI with Amlodipine and zocor. #HTN: continue amlodipine , lisinopril 20 BID DVT px: Lovenox sq discharge to rehab. waiting for the authorization from the insurance [employer]
[2018-08-13] MEDS: oxyCODONE HCL 5 MG TABLET PO PRN ×2 (10:43→17:13)
[2018-08-13] MEDS: POLYETHYLENE GLYCOL 3350 119 GM BTL PO SCH ×2 (10:44→21:53)
--- NOTE | 2018-08-13 14:19 | PN ---
Physical Exam: SUBJECTIVE: Patient seen and examined. Pt. asking for more pain medications. Had a small BM yesterday in afternoon but none overnight. Pt. complaining of pain when externally rotating right leg. OBJECTIVE: Vital Signs Period Temp Pulse Resp BP Sys/Mccoy Pulse Ox Last 24 Hr 98.2 F-98.3 F 80-84 18-24 154-177/76-83 96-96 GENERAL: The patient is awake, alert, and fully oriented, in mild distress. HEAD: Normal with no signs of trauma. EYES: PERRL, sclera anicteric, conjunctiva clear. No ptosis. ENT: Ears normal, nares patent, oropharynx clear without exudates, moist mucous membranes. NECK: Trachea midline, full range of motion, supple. LUNGS: Limited exam- Breath sounds equal, clear to auscultation bilaterally, no wheezes, no crackles, no accessory muscle use. HEART: Regular rate and rhythm, S1, S2 without murmur, prominent clavicular heads ABDOMEN: Soft, nontender, nondistended, normoactive bowel sounds, tympanic to percussion, no guarding, no rebound EXTREMITIES: 2+ dorsal pedal pulses, warm, no calf tenderness, well-perfused, no edema, RIGGINS spontaneously able to flex knee and hip to 90 degrees; right hip non-tender to palpation, ecchymosis now present over surgical site PSYCH: Normal mood, normal affect. SKIN: Warm, dry, normal turgor, no rashes or lesions noted Laboratory Results - last 24 hr 08/12/18 08/12/18 08/13/18 16:37 20:35 05:45 POC Glucometer 173 173 152 08/13/18 11:14 POC Glucometer 144 Active Medications Home Medications Medication Instructions Recorded Metformin HCl [Metformin HCl ER] 500 mg PO BID 10/31/14 Alprazolam [Xanax] 0.25 mg PO DAILY 08/09/18 Current Medications Alprazolam (Xanax -) 0.25 mg PO DAILY [facility] Last Admin: 08/13/18 09:03 Dose: 0.25 mg Atorvastatin Calcium (Lipitor -) 20 mg PO HS [facility] Last Admin: 08/12/18 21:09 Dose: 20 mg Calcium Carbonate/Cholecalciferol (Os-Leroy 500+D -) 1 tab PO BID [facility] Last Admin: 08/13/18 09:03 Dose: 1 tab Docusate Sodium (Colace -) 100 mg PO TID [facility] Last Admin: 08/13/18 14:25 Dose: 100 mg Enoxaparin Sodium (Lovenox -) 40 mg SQ DAILY [facility] Last Admin: 08/13/18 09:03 Dose: 40 mg Insulin Aspart (Novolog Vial Sliding Scale -) 1 vial SQ [facility]; Protocol Last Admin: 08/13/18 11:16 Dose: Not Given Lisinopril (Prinivil) 20 mg PO BID [facility] Last Admin: 08/13/18 09:03 Dose: 20 mg Ondansetron HCl (Zofran Injection) 4 mg IVPUSH Q6H PRN PRN Reason: NAUSEA AND/OR VOMITING Last Admin: 08/09/18 18:17 Dose: 4 mg Oxycodone HCl (Roxicodone -) 5 mg PO Q6H PRN PRN Reason: PAIN LEVEL 1-5 Last Admin: 08/13/18 10:43 Dose: 5 mg Polyethylene Glycol (Miralax (For Daily Use) -) 17 gm PO BID [facility] Last Admin: 08/13/18 10:44 Dose: 17 grams Senna (Senna -) 1 tab PO HS [facility] Last Admin: 08/12/18 21:09 Dose: 1 tab ASSESSMENT/PLAN: Pt. is an 78 y.o. F w/ PMHx NIDDM, HTN, HLD presents to the ED with Right Hip fracture 2/2 mechanical fall, found to have asymptomatic UTI. #Right Hip Fracture 2/2 mechanical fall -POD #5 -Oxycodone 5mg and 10mg for pain 1-5 and 6-10 respectively. -LR @ 42 -PT- walked 12ft. today -Orthopedic Surgery consult (Dr. Ross) appreciated -Pt. underwent gamma nail surgery -weight bearing as tolerated -received final dose of Ceftriaxone #UTI-stable -Asymptomatic -Given Ceftriaxone empirically in ED -UCx pending- however Pt. asymptomatic at this time, no indication to continue treatment. -History of diabetes may have component in lack of symptoms. #NIDDM-stable -Glucose uncontrolled-185 -hold metformin -BGM ACHS -SSI #HLD-stable -c/w Lipitor 10mg #HTN -increased Lisinopril to 20mg BID - will restart Norvasc if BP starts to get higher -Per medication reconciliation, Pt. has not picked up ACEI or Norvasc in months #F/E/N -LR @ 42 -monitor electrolytes and replete as needed -Regular diet #PPx -DVT: Lovenox 40mg SQ -GI: not indicated Visit type - Emergency Visit Emergency Visit: Yes ED Registration Date: 08/08/18 Care time: The patient presented to the Emergency Department on the above date and was hospitalized for further evaluation of their emergent condition. - New Patient This patient is new to me today: No - Critical Care Critical Care patient: No - Discharge Referral Referred to [facility] Med P.C[facility] No
--- NOTE | 2018-08-13 18:32 | PN ---
Progress Note (short form) - Note Progress Note: Pt lying comf in bed. Pain controlled. Last Vital Signs Temp Pulse Resp BP Pulse Ox 98.3 F 80 18 155/71 96 08/13/18 14:32 08/13/18 14:32 08/13/18 14:32 08/13/18 14:32 08/13/18 09:00 RLE dressings cdi calves soft nt ehl fhl ta g s sens int to LT 2+ dp Laboratory Results - last 24 hr 08/12/18 08/13/18 08/13/18 20:35 05:45 11:14 POC Glucometer 173 152 144 08/13/18 17:05 POC Glucometer 137 a/p POD 4 R femoral nail -wbat -PT -pain ctrl (minimize narcotics) -dvt proph -oob/ambulate -stable for d/c to SNF
[2018-08-13] MEDS: ATORVASTATIN CA 20 MG TABLET (FP) PO SCH (21:53)
[2018-08-13] MEDS: SENNOSIDES 8.6MG TABLET (FP) PO SCH (21:53)
[2018-08-14] MEDS: oxyCODONE HCL 5 MG TABLET PO PRN ×2 (01:04→11:04)
[2018-08-14] MEDS: INSULIN SLIDING SCALE (NOVOLOG) 1 VIAL SQ SCH ×2 (06:27→11:53)
[2018-08-14] MEDS: DOCUSATE SODIUM 100 MG CAPSULE (FP) PO SCH (06:27)
[2018-08-14] MEDS ORDERED: GLYCERIN 1 RECTAL SUPPOSITORY, ADULT PR ONE (06:51)
--- NOTE | 2018-08-14 08:25 | PN ---
Teaching Attending Note Name of Resident: Mike Ochoa ATTENDING PHYSICIAN STATEMENT I saw and evaluated the patient. I reviewed the resident's note and discussed the case with the resident. I agree with the resident's findings and plan as documented. SUBJECTIVE: Patient looks happy since has less pain ,going to rehab today OBJECTIVE: Vital Signs Temperature 98.5 F 08/14/18 05:21 Pulse Rate 75 08/14/18 05:21 Respiratory Rate 19 08/14/18 05:21 Blood Pressure 148/72 08/14/18 05:21 O2 Sat by Pulse Oximetry (%) 96 08/13/18 21:00 GENERAL: A&Ox3, NAD HEAD: NC/AT, EYES: PERRLA, EOMI EARS, NOSE, THROAT: Ears normal, oropharynx clear without exudates. Moist mucous membranes. NECK: Normal range of motion, supple without lymphadenopathy, JVD, or masses. LUNGS: Breath sounds equal, clear to auscultation bilaterally. No wheezes, and no crackles. No accessory muscle use. HEART: Regular rate and rhythm, normal S1 and S2 without murmur, rub or gallop. ABDOMEN: Soft, nontender, not distended, normoactive bowel sounds, No hepatomegaly or splenomegaly. EXTREMITIES: 2+ pulses, warm, well-perfused. No edema. s/p right hip surgery NEUROLOGICAL: Cranial nerves II-XII intact. Normal speech. Gait not assessed. PSYCHIATRIC: Cooperative. Good eye contact. Appropriate mood and affect. SKIN: Warm, dry, normal turgor, no rashes or lesions noted, normal capillary refill. CBCD WBC 7.7 K/mm3 (4.0-10.0) 08/11/18 07:30 RBC 4.16 M/mm3 (3.60-5.2) 08/11/18 07:30 Hgb 12.0 GM/dL (10.7-15.3) 08/11/18 07:30 Hct 36.3 % (32.4-45.2) 08/11/18 07:30 MCV 87.3 fl (80-96) 08/11/18 07:30 MCHC 33.1 g/dl (32.0-36.0) 08/11/18 07:30 RDW 13.8 % (11.6-15.6) 08/11/18 07:30 Plt Count 156 K/MM3 (134-434) 08/11/18 07:30 MPV 9.7 fl (7.5-11.1) 08/11/18 07:30 CMP Sodium 141 mmol/L (136-145) 08/11/18 07:30 Potassium 3.9 mmol/L (3.5-5.1) 08/11/18 07:30 Chloride 104 mmol/L (98-107) 08/11/18 07:30 Carbon Dioxide 27 mmol/L (21-32) 08/11/18 07:30 Anion Gap 10 MMOL/L (8-16) 08/11/18 07:30 BUN 13 mg/dL (7-18) 08/11/18 07:30 Creatinine 0.5 mg/dL (0.55-1.3) L 08/11/18 07:30 Creat Clearance w eGFR > 60 (>60) 08/11/18 07:30 Random Glucose 147 mg/dL (74-106) H 08/11/18 07:30 Calcium 8.2 mg/dL (8.5-10.1) L 08/11/18 07:30 Total Bilirubin 0.3 mg/dL (0.2-1) 08/08/18 20:50 AST 15 U/L (15-37) 08/08/18 20:50 ALT 23 U/L (13-61) 08/08/18 20:50 Alkaline Phosphatase 81 U/L (45-117) 08/08/18 20:50 Total Protein 7.2 g/dl (6.4-8.2) 08/08/18 20:50 Albumin 4.0 g/dl (3.4-5.0) 08/08/18 20:50 CARDIAC ENZYMES Troponin I 0.03 ng/ml (0.00-0.05) 08/08/18 20:50 Current Medications Generic Name Dose Route Start Last Admin Trade Name Freq PRN Reason Stop Dose Admin Alprazolam 0.25 mg 08/10/18 10:00 08/13/18 09:03 Xanax - PO 0.25 mg DAILY TERRENCE Administration Atorvastatin Calcium 20 mg 08/09/18 22:00 08/13/18 21:53 Lipitor - PO 20 mg HS TERRENCE Administration Calcium Carbonate/Cholecalciferol 1 tab 08/09/18 22:00 08/13/18 21:53 Os-Leroy 500+D - PO 1 tab BID TERRENCE Administration Docusate Sodium 100 mg 08/09/18 22:00 08/14/18 06:27 Colace - PO 100 mg TID TERRENCE Administration Enoxaparin Sodium 40 mg 08/10/18 10:00 08/13/18 09:03 Lovenox - SQ 40 mg DAILY TERRENCE Administration Insulin Aspart 1 vial 08/09/18 16:30 08/14/18 06:27 Novolog Vial Sliding Scale - SQ Not Given [facility] Protocol Lisinopril 20 mg 08/10/18 10:00 08/13/18 21:53 Prinivil PO 20 mg BID TERRENCE Administration Ondansetron HCl 4 mg 08/09/18 15:18 08/09/18 18:17 Zofran Injection IVPUSH 4 mg Q6H PRN Administration NAUSEA AND/OR VOMITING Oxycodone HCl 5 mg 08/12/18 10:09 08/14/18 01:04 Roxicodone - PO 5 mg Q6H PRN Administration PAIN LEVEL 1-5 Polyethylene Glycol 17 gm 08/13/18 10:45 08/13/18 21:53 Miralax (For Daily Use) - PO 17 grams BID TERRENCE Administration Senna 1 tab 08/12/18 22:00 08/13/18 21:53 Senna - PO 1 tab HS TERRENCE Administration Home Medications Medication Instructions Recorded Metformin HCl [Metformin HCl ER] 500 mg PO BID 10/31/14 Alprazolam [Xanax] 0.25 mg PO DAILY 08/09/18 08/08/18 20:39 Urine - Urine Clean Catch Urine Culture - Final NO GROWTH OBTAINED ASSESSMENT AND PLAN: Patient is an 78 y/o F w/ PMHx T2DM, HTN, HLD s/p fall with R hip Fx due to mechanical fall. #POD #4 s/p Right hip intramedullary nail s/p right fx due to mechanical fall. Oxycodone for pain prn, take it with colace . Patient can be discharged to rehab. today. #UTI: received multiple dose of ceftriaxone . UCx is no growth. no further Rocephin needed #T2DM: hold metformin, BGM ACHS, SSI #HLD: continue with Lipitor , hold zocor due to DDI with Amlodipine and zocor. #HTN: continue amlodipine , lisinopril 20 BID DVT px: Lovenox sq discharge to rehab.
[2018-08-14] MEDS: ALPRAZolam 0.25 MG TABLET PO SCH (09:25)
[2018-08-14] MEDS: LISINOPRIL 20 MG TABLET (FP) PO SCH (09:25)
[2018-08-14] MEDS: ENOXAPARIN NA (PORCINE) 40 MG/0.4 ML DISP.SYRIN SQ SCH (09:25)
[2018-08-14] MEDS: CALCIUM 500MG/VIT-D 200 UNITS COMBO TABLET (FP) PO SCH (09:25)
--- NOTE | 2018-08-14 10:26 | PN ---
Progress Note, Physician Chief Complaint: Feels well. Resting in chair. - Current Medication List Current Medications: Active Medications Alprazolam (Xanax -) 0.25 mg PO DAILY [facility] Last Admin: 08/14/18 09:25 Dose: 0.25 mg Atorvastatin Calcium (Lipitor -) 20 mg PO [facility] Last Admin: 08/13/18 21:53 Dose: 20 mg Calcium Carbonate/Cholecalciferol (Os-Leroy 500+D -) 1 tab PO BID [facility] Last Admin: 08/14/18 09:25 Dose: 1 tab Docusate Sodium (Colace -) 100 mg PO TID [facility] Last Admin: 08/14/18 06:27 Dose: 100 mg Enoxaparin Sodium (Lovenox -) 40 mg SQ DAILY [facility] Last Admin: 08/14/18 09:25 Dose: 40 mg Insulin Aspart (Novolog Vial Sliding Scale -) 1 vial SQ [facility]; Protocol Last Admin: 08/14/18 06:27 Dose: Not Given Lisinopril (Prinivil) 20 mg PO BID [facility] Last Admin: 08/14/18 09:25 Dose: 20 mg Ondansetron HCl (Zofran Injection) 4 mg IVPUSH Q6H PRN PRN Reason: NAUSEA AND/OR VOMITING Last Admin: 08/09/18 18:17 Dose: 4 mg Oxycodone HCl (Roxicodone -) 5 mg PO Q6H PRN PRN Reason: PAIN LEVEL 1-5 Last Admin: 08/14/18 01:04 Dose: 5 mg Polyethylene Glycol (Miralax (For Daily Use) -) 17 gm PO BID [facility] Last Admin: 08/13/18 21:53 Dose: 17 grams Senna (Senna -) 1 tab PO [facility] Last Admin: 08/13/18 21:53 Dose: 1 tab - Objective Vital Signs: Vital Signs Temperature 98.5 F 08/14/18 05:21 Pulse Rate 75 08/14/18 05:21 Respiratory Rate 19 08/14/18 05:21 Blood Pressure 148/72 08/14/18 05:21 O2 Sat by Pulse Oximetry (%) 96 08/13/18 21:00 Constitutional: Yes: Well Nourished, No Distress, Calm Musculoskeletal: Yes: Other (Dressing CDI, Smooth motion of the hip. Compartments soft. Calf nontender. neg roger's sign. NVID) Labs: CBC, BMP 08/11/18 07:30 08/11/18 07:30 INR, PTT INR 1.02 (0.83-1.09) 08/08/18 21:20 Assessment/Plan POD #4 s/p right hip ORIF -PT WBAT -Pain control -DVT prophylaxis -Discharge planning
--- NOTE | 2018-08-14 10:44 | DS ---
Physical Exam: SUBJECTIVE: Patient seen and examined OBJECTIVE: Vital Signs Period Temp Pulse Resp BP Sys/Mccoy Pulse Ox Last 24 Hr 98.3 F-98.5 F 75-85 18-19 123-155/68-82 96 PHYSICAL EXAM GENERAL: The patient is awake, alert, and fully oriented, in no acute distress. HEAD: Normal with no signs of trauma. EYES: PERRL, extraocular movements intact, sclera anicteric, conjunctiva clear. ENT: Ears normal, nares patent, oropharynx clear without exudates, moist mucous membranes. NECK: Trachea midline, full range of motion, supple. LUNGS: Breath sounds equal, clear to auscultation bilaterally, no wheezes, no crackles, no accessory muscle use. HEART: Regular rate and rhythm, S1, S2 without murmur, rub or gallop. ABDOMEN: Soft, nontender, nondistended, normoactive bowel sounds, no guarding, no rebound, no hepatosplenomegaly, no masses. EXTREMITIES: 2+ pulses, warm, well-perfused, no edema. NEUROLOGICAL: Cranial nerves II through XII grossly intact. Normal speech, gait not observed. PSYCH: Normal mood, normal affect. SKIN: Warm, dry, normal turgor, no rashes or lesions noted. LABS Laboratory Results - last 24 hr 08/13/18 08/13/18 08/13/18 11:14 17:05 21:58 POC Glucometer 144 137 193 08/14/18 06:26 POC Glucometer 150 HOSPITAL COURSE: Date of Admission:08/08/18 Date of Discharge: 08/14/18 Discharge Summary Reason For Visit: FRACTURE OF HIP Current Active Problems Displaced intertrochanteric fracture of right femur, initial encounter for closed fracture (Acute) Hip fracture (Acute) Condition: Improved - Instructions Diet, Activity, Other Instructions: You came in for a right hip fracture. You had a hip surgery on 08/09/[address] Ross. We started you on a new medication for your blood pressure, Lisinopril 20mg BID. Please take as prescribed. Please follow up with your Primary Care Physician within 1 week and have blood work checked for your creatinine. Please follow up with your Orthopedic surgeon within 1 week. Please return to the ER if you are experiencing worsening hip pain, shortness of breath, chest pain, leg weakness, fever or chills, or any other concerning symptoms. Referrals: Howard Ross MD [Staff Physician] - 1 Week Carlos Roberto MD [Staff Physician] - 1 Week Disposition: [facility] - Home Medications Comprehensive Discharge Medication List: Ambulatory Orders Metformin HCl [Metformin HCl ER] 500 mg PO BID 10/31/14 Alprazolam [Xanax] 0.25 mg PO DAILY 08/09/18 Lisinopril [Prinivil] 20 mg PO BID #60 tablet 08/14/18 - Discharge Referral Referred to [facility] No
[2018-08-14 11:09] VITALS: BP 155/70; PULSE 74; TEMP 98.4
[2018-08-14] MEDS: POLYETHYLENE GLYCOL 3350 119 GM BTL PO SCH (11:54)
== END 2018-08-14 15:54 | DRG 481 ==
LOC: JER 18:58 → JERBED 22:08 → J7W 08-09 00:45 → J6S 08-09 16:27
PROVIDERS: ADMIT Internal Medicine; ATTEND Internal Medicine
PROC: 0QS606Z Reposition Right Upper Femur with Intramedullary Internal Fixation Device, Open Approach (ICD-10-PCS; principal; 2018-08-09 12:00)
DX: S72.141A Displaced intertrochanteric fracture of right femur, initial encounter for closed fracture (principal); N39.0 Urinary tract infection, site not specified; I10 Essential (primary) hypertension; E78.5 Hyperlipidemia, unspecified; E11.9 Type 2 diabetes mellitus without complications; W01.0XXA Fall on same level from slipping, tripping and stumbling without subsequent striking against object, initial encounter; Y92.098 Other place in other non-institutional residence as the place of occurrence of the external cause
CPT/HCPCS: 36415; 73523-TC-FY; 76000-TC-FY; 80048; 80053; 81003; 81015; 82962; 83735; 84100; 84484; 85025; 85027; 85610; 85730; 86850; 86900; 86901; 87086; 93005; 93010; 94760; 97116-GP; 97162-GP; 99283-25; J0131